=== PATIENT | male | born 1955 | race Caucasian/White ===

== ENCOUNTER → 2017-05-05 | Outpatient (CLI) | payer OTHER ==
[2017-05-05] MEDS: PROPARACAINE 0.5% 15 ML OPH (10:45)
[2017-05-05] MEDS: APRACLONIDINE 1% 0.1 ML OPH (10:45)
[2017-05-05] MEDS: PILOCARPINE 2% 15ML OPH (10:46)
== END | disposition home or self-care (01) ==
LOC: RAD 10:30
DX: H40.20X0 Unspecified primary angle-closure glaucoma, stage unspecified (principal)
CPT/HCPCS: 66761

== ENCOUNTER 2018-02-15 05:49 | Day surgery (SDC) | payer OTHER ==
[2018-02-15 07:14] LABS: ALANINE AMINOTRANSFERASE 20 IU/L (13-69); ALBUMIN 3.6 g/dl (3.3-4.9); ALBUMIN/GLOBULIN RATIO 1.28; ALKALINE PHOSPHATASE 73 IU/L (42-121); ANION GAP 10 (8-16); ASPARTATE AMINO TRANSFERASE 17 IU/L (15-46); BILIRUBIN,INDIRECT 0.4 mg/dl (0-1.1); BILIRUBIN,TOTAL 0.4 mg/dl (0.2-1.3); BLOOD UREA NITROGEN 15 mg/dl (7-20); CARBON DIOXIDE 26 mmol/L (21-31); CHLORIDE 107 mmol/L (97-110); CREATININE 0.53 mg/dl (0.61-1.24); GLUCOSE 138 mg/dl (70-220); POTASSIUM 3.9 mmol/L (3.5-5.1); SODIUM 139 mmol/L (135-144); TOTAL PROTEIN 6.4 g/dl (6.1-8.1)
[2018-02-15] MEDS ORDERED: MIDAZOLAM 1 MG/ML 2 ML INJ (07:28)
[2018-02-15] MEDS ORDERED: FENTAnyl 50 MCG/ML VIAL (07:28)
[2018-02-15] MEDS ORDERED: HEPARIN 1000 UNITS/ML 10 ML INJ (08:00)
[2018-02-15] MEDS ORDERED: IODIXANOL LOCM 50 ML BTL (08:00)
[2018-02-15] MEDS ORDERED: IODIXANOL LOCM 100 ML BTL (08:00)
[2018-02-15] MEDS ORDERED: LIDOCAINE 1% (MDV) 20 ML INJ (08:51)
[2018-02-15] MEDS ORDERED: LACTATED RINGER'S 1,000 ML (09:38)
== END 2018-02-15 12:28 | disposition home or self-care (01) ==
LOC: CCL 05:49 → SDS 05:49 → CCL 12:28
DX: I96 Gangrene, not elsewhere classified (principal); E11.9 Type 2 diabetes mellitus without complications; I42.9 Cardiomyopathy, unspecified; Z95.0 Presence of cardiac pacemaker; I11.0 Hypertensive heart disease with heart failure; I50.9 Heart failure, unspecified; I25.2 Old myocardial infarction
CPT/HCPCS: 37228; 75625; 75710; 80053; 82962

== ENCOUNTER → 2018-07-09 | Day surgery (SDC) | payer OTHER ==
[~2018-07-09] MED LIST: ACETAMINOPHEN 325 MG TAB; FENTAnyl 50 MCG/ML VIAL; HEPARIN 1000 UNITS/ML 10 ML INJ; IODIXANOL LOCM 100 ML BTL; LACTATED RINGER'S 500 ML IV; LIDOCAINE 1% (MDV) 20 ML INJ; MIDAZOLAM 1 MG/ML 2 ML INJ
[2018-07-09 11:17] LABS: ADD MAN DIFF? NO
[2018-07-09 11:20] LABS: WHITE BLOOD COUNT 9.7 10^3/ul (4.8-10.8)
[2018-07-09 11:20] LABS: BASOPHILS % 0.4 % (0.0-2.0); EOSINOPHILS # 0.3 10^3/ul (0.0-0.5); EOSINOPHILS % 2.7 % (0.0-7.0); HEMATOCRIT 45.8 % (42.0-52.0); LYMPHOCYTES # 2.5 10^3/ul (0.8-2.9); LYMPHOCYTES % 25.4 % (15.0-51.0); MEAN CORPUSCULAR HEMOGLOBIN 29.8 pg (29.0-33.0); MEAN CORPUSCULAR HGB CONC 32.8 g/dl (32.0-37.0); MEAN CORPUSCULAR VOLUME 90.9 fl (82.0-101.0); MEAN PLATELET VOLUME 10.9 fl (7.4-10.4); MONOCYTE # 0.7 10^3/ul (0.3-0.9); MONOCYTES % 7.1 % (0.0-11.0); NEUTROPHIL # 6.2 10^3/ul (1.6-7.5); PLATELET COUNT 263 10^3/UL (140-415); RED BLOOD COUNT 5.04 10^6/ul (4.70-6.10); RED CELL DISTRIBUTION WIDTH 13.9 % (11.5-14.5)
[2018-07-09 11:28] LABS: ADD UMIC NO; UR ASCORBIC ACID NEGATIVE (NEGATIVE); UR BILIRUBIN (Dip) NEGATIVE (NEGATIVE); UR BLOOD (Dip) NEGATIVE (NEGATIVE); UR CLARITY CLEAR (CLEAR); UR COLOR STRAW (YELLOW); UR GLUCOSE (Dip) 3+ mg/dL (NEGATIVE); UR KETONES (Dip) NEGATIVE (NEGATIVE); UR LEUKOCYTE ESTERASE (Dip) NEGATIVE Leu/ul (NEGATIVE); UR NITRITE (Dip) NEGATIVE (NEGATIVE); UR SPECIFIC GRAVITY (Dip) 1.013 (1.003-1.030); UR TOTAL PROTEIN (Dip) NEGATIVE (NEGATIVE); UR UROBILINOGEN (Dip) NEGATIVE (NEGATIVE)
[2018-07-09 11:37] LABS: ANION GAP 7 (5-13); BLOOD UREA NITROGEN 13 mg/dl (7-20); CALCIUM 9.7 mg/dl (8.4-10.2); CARBON DIOXIDE 24 mmol/L (21-31); CHLORIDE 108 mmol/L (97-110); Estimated GFR > 60 mL/min (>60); GLUCOSE 147 mg/dl (70-220); POTASSIUM 4.2 mmol/L (3.5-5.1); SODIUM 139 mmol/L (135-144)
[2018-07-09 11:38] LABS: INR 0.92; PROTIME 12.5 Sec (11.9-14.9)
[2018-07-09 11:39] LABS: CREATININE 0.58 mg/dl (0.61-1.24); PARTIAL THROMBOPLASTIN TIME 26.4 Sec (23.0-35.0)
[2018-07-09] MEDS: ACETAMINOPHEN 325 MG TAB PO (14:01)
== END | disposition home or self-care (01) ==
LOC: SDS 10:09
DX: L97.419 Non-pressure chronic ulcer of right heel and midfoot with unspecified severity (principal); I96 Gangrene, not elsewhere classified; E11.9 Type 2 diabetes mellitus without complications; I10 Essential (primary) hypertension; I73.9 Peripheral vascular disease, unspecified
CPT/HCPCS: 36902; 75630; 80048; 81003; 82962; 85025; 85610; 85730

== ENCOUNTER 2018-09-17 14:04 | Inpatient (IN) | payer OTHER ==
[2018-09-17 17:22] LABS: ADD MAN DIFF? NO
[2018-09-17 17:25] LABS: WHITE BLOOD COUNT 9.9 10^3/ul (4.8-10.8)
[2018-09-17 17:25] LABS: BASOPHILS % 0.3 % (0.0-2.0); EOSINOPHILS # 0.3 10^3/ul (0.0-0.5); EOSINOPHILS % 3.1 % (0.0-7.0); HEMOGLOBIN 13.8 g/dl (14.0-18.0); LYMPHOCYTES % 29.8 % (15.0-51.0); MEAN CORPUSCULAR HEMOGLOBIN 29.4 pg (29.0-33.0); MEAN CORPUSCULAR HGB CONC 32.1 g/dl (32.0-37.0); MEAN CORPUSCULAR VOLUME 91.5 fl (82.0-101.0); MONOCYTE # 0.8 10^3/ul (0.3-0.9); MONOCYTES % 8.4 % (0.0-11.0); NEUTROPHIL # 5.7 10^3/ul (1.6-7.5); PLATELET COUNT 257 10^3/UL (140-415); RED CELL DISTRIBUTION WIDTH 14.6 % (11.5-14.5)
[2018-09-17] MEDS: CEFEPIME 2GM/50 ML (PMX) 50 ML IVPB (17:32)
[2018-09-17 17:47] LABS: INR 0.91; PROTIME 12.4 Sec (11.9-14.9)
[2018-09-17 17:48] LABS: PARTIAL THROMBOPLASTIN TIME 23.5 Sec (23.0-35.0)
[2018-09-17 18:03] LABS: ALANINE AMINOTRANSFERASE 12 IU/L (13-69); ALBUMIN 4.3 g/dl (3.3-4.9); ALBUMIN/GLOBULIN RATIO 1.19; ALKALINE PHOSPHATASE 102 IU/L (42-121); ANION GAP 12 (5-13); ASPARTATE AMINO TRANSFERASE 26 IU/L (15-46); BILIRUBIN,INDIRECT 0.2 mg/dl (0-1.1); BILIRUBIN,TOTAL 0.2 mg/dl (0.2-1.3); BLOOD UREA NITROGEN 18 mg/dl (7-20); CALCIUM 9.8 mg/dl (8.4-10.2); CARBON DIOXIDE 21 mmol/L (21-31); CHLORIDE 108 mmol/L (97-110); CREATININE 0.57 mg/dl (0.61-1.24); Estimated GFR > 60 mL/min (>60); GLUCOSE 125 mg/dl (70-220); POTASSIUM 4.9 mmol/L (3.5-5.1); SODIUM 141 mmol/L (135-144); TOTAL PROTEIN 7.9 g/dl (6.1-8.1)
[2018-09-17] MEDS: VANCOMYCIN 1 GM (PMX) 250 ML IVPB (18:06)
[2018-09-17 18:14] LABS: C-REACTIVE PROTEIN < 0.5 mg/dl (0.0-0.9)
[2018-09-17] MEDS: morphine 10 MG INJ IV (18:14)
[2018-09-17] MEDS ORDERED: ACETAMINOPHEN 325 MG TAB PO ×2 (18:30→20:30)
[2018-09-17] MEDS ORDERED: ONDANSETRON 4 MG INJ IV (18:30)
[2018-09-17 18:31] LABS: ERYTHROCYTE SEDIMENTATION RATE 26 mm/Hr (0-20)
[2018-09-17] MEDS: ACCU-CHEK XX (21:00)
[2018-09-17] MEDS ORDERED: GLUCOSE GEL 15 GRAM TUBE PO ×2 (21:30)
[2018-09-17] MEDS ORDERED: GLUCOSE GEL 15 GRAM TUBE BUCCAL (21:30)
[2018-09-17] MEDS ORDERED: DEXTROSE 50% 50 ML SYRINGE IV ×2 (21:30)
[2018-09-17] MEDS ORDERED: GLUCAGON 1 MG INJ IM (21:30)
[2018-09-17] MEDS: morphine 4 MG/ML VIAL IV (21:49)
[2018-09-17] MEDS ORDERED: TRIMETHOPRIM/SULFAMETHOX (DS) TAB PO (22:30)
[2018-09-17] MEDS ORDERED: INSULIN GLARGINE [LANtus] 3 ML PEN SC (22:30)
[2018-09-17] MEDS: INSULIN ASPART [NOVOLOG] 3 ML PEN SC (23:33)
[2018-09-17] MEDS: INSULIN GLARGINE [LANTus] (100 UNITS/ML) SYG SC (23:36)
[2018-09-18] MEDS: HYDROCODONE/APAP (5/325) TAB PO ×4 (00:18→23:01)
[2018-09-18] MEDS: morphine 4 MG/ML VIAL IV ×5 (01:57→20:33)
[2018-09-18] MEDS: ACCU-CHEK XX ×5 (01:59→20:42)
[2018-09-18 06:39] LABS: INR 0.91; PROTIME 12.4 Sec (11.9-14.9)
[2018-09-18 06:40] LABS: PARTIAL THROMBOPLASTIN TIME 26.2 Sec (23.0-35.0)
[2018-09-18 06:41] LABS: HEMOGLOBIN A1C 7.6 % (0-5.9)
[2018-09-18 07:10] LABS: ANION GAP 7 (5-13); BLOOD UREA NITROGEN 16 mg/dl (7-20); CALCIUM 9.2 mg/dl (8.4-10.2); CARBON DIOXIDE 28 mmol/L (21-31); CHLORIDE 105 mmol/L (97-110); CHOL/HDL RATIO 4.3 RATIO; CHOLESTEROL 108 mg/dl (100-200); CREATININE 0.56 mg/dl (0.61-1.24); Estimated GFR > 60 mL/min (>60); GLUCOSE 114 mg/dl (70-220); HDL CHOLESTEROL 25 mg/dl (30-78); LDL CHOLESTEROL,CALCULATED 65 mg/dl; POTASSIUM 4.3 mmol/L (3.5-5.1); SODIUM 140 mmol/L (135-144); TRIGLYCERIDES 89 mg/dl (0-149)
[2018-09-18] MEDS: INSULIN ASPART [NOVOLOG] 3 ML PEN SC ×4 (08:00→20:42)
[2018-09-18] MEDS: GABAPENTIN 300 MG CAP PO (09:12)
[2018-09-18] MEDS: EMPAGLIFLOZIN 10 MG TABLET PO (09:14)
[2018-09-18] MEDS: LINAGLIPTIN 5 MG TABLET PO (09:14)
[2018-09-18] MEDS: CLOPIDOGREL 75 MG TAB PO (09:15)
[2018-09-18] MEDS: AMIODARONE 200 MG TAB PO (09:16)
[2018-09-18] MEDS: DIGOXIN 0.125 MG TAB PO (12:40)
[2018-09-18 18:50] LABS: TROPONIN-I < 0.012 ng/ml (0.000-0.120)
[2018-09-18] MEDS: INSULIN GLARGINE [LANTus] (100 UNITS/ML) SYG SC (20:46)
[2018-09-19 01:27] LABS: TROPONIN-I < 0.012 ng/ml (0.000-0.120)
[2018-09-19] MEDS: morphine 4 MG/ML VIAL IV ×5 (01:47→22:44)
[2018-09-19] MEDS: ACCU-CHEK XX ×5 (02:00→20:31)
[2018-09-19] MEDS: metroNIDAZOLE 500 MG TAB PO ×3 (02:04→14:13)
[2018-09-19] MEDS ORDERED: VANCOMYCIN IV PER PHARMACY XX (02:30)
[2018-09-19] MEDS: VANCOMYCIN HCL 2 GM in SOD CHLORIDE 0.9% 500 ML IVPB (04:12)
[2018-09-19] MEDS: HYDROCODONE/APAP (5/325) TAB PO ×3 (04:15→20:27)
[2018-09-19 05:52] LABS: CHOL/HDL RATIO 3.5 RATIO; HDL CHOLESTEROL 29 mg/dl (30-78); LDL CHOLESTEROL,CALCULATED 62 mg/dl; TRIGLYCERIDES 57 mg/dl (0-149)
[2018-09-19 05:52] LABS: CHOLESTEROL 102 mg/dl (100-200)
[2018-09-19 06:05] LABS: TROPONIN-I < 0.012 ng/ml (0.000-0.120)
[2018-09-19] MEDS: INSULIN ASPART [NOVOLOG] 3 ML PEN SC ×4 (08:00→20:31)
[2018-09-19] MEDS: CLOPIDOGREL 75 MG TAB PO (08:48)
[2018-09-19] MEDS: LINAGLIPTIN 5 MG TABLET PO (08:48)
[2018-09-19] MEDS: EMPAGLIFLOZIN 10 MG TABLET PO (08:49)
[2018-09-19] MEDS: GABAPENTIN 300 MG CAP PO (08:50)
[2018-09-19] MEDS: CEFEPIME 2GM/50 ML (PMX) 50 ML IVPB (08:55)
[2018-09-19] MEDS: AMIODARONE 200 MG TAB PO (09:00)
[2018-09-19] MEDS: REGADENOSON 0.4 MG/5 ML SYG (12:30)
[2018-09-19] MEDS: DIGOXIN 0.125 MG TAB PO (14:14)
[2018-09-19] MEDS: VANCOMYCIN HCL 1.5 GM in SOD CHLORIDE 0.9% 250 ML IVPB (16:20)
[2018-09-19] MEDS: INSULIN GLARGINE [LANTus] (100 UNITS/ML) SYG SC (20:33)
[2018-09-19] MEDS: MEROPENEM 1 GM/50ML(PMX) 50 ML IVPB (20:35)
[2018-09-19] MEDS: CLINDAMYCIN 900 MG/D5W (PMX) 50 ML IVPB (22:47)
[2018-09-20] MEDS: HYDROCODONE/APAP (5/325) TAB PO ×4 (00:37→22:13)
[2018-09-20] MEDS: ACCU-CHEK XX ×5 (02:00→21:00)
[2018-09-20] MEDS: morphine 4 MG/ML VIAL IV ×6 (02:54→23:52)
[2018-09-20] MEDS: VANCOMYCIN HCL 1.5 GM in SOD CHLORIDE 0.9% 250 ML IVPB ×2 (04:09→16:32)
[2018-09-20 05:45] LABS: ADD MAN DIFF? NO
[2018-09-20] MEDS: MEROPENEM 1 GM/50ML(PMX) 50 ML IVPB ×3 (05:47→21:28)
[2018-09-20 05:52] LABS: BASOPHILS % 0.4 % (0.0-2.0); EOSINOPHILS # 0.3 10^3/ul (0.0-0.5); EOSINOPHILS % 3.5 % (0.0-7.0); LYMPHOCYTES # 2.1 10^3/ul (0.8-2.9); LYMPHOCYTES % 24.9 % (15.0-51.0); MEAN CORPUSCULAR HEMOGLOBIN 29.2 pg (29.0-33.0); MEAN CORPUSCULAR HGB CONC 32.6 g/dl (32.0-37.0); MEAN CORPUSCULAR VOLUME 89.8 fl (82.0-101.0); MEAN PLATELET VOLUME 10.9 fl (7.4-10.4); MONOCYTE # 0.7 10^3/ul (0.3-0.9); MONOCYTES % 8.6 % (0.0-11.0); NEUTROPHIL # 5.2 10^3/ul (1.6-7.5); NEUTROPHILS % 62.1 % (39.0-77.0); PLATELET COUNT 257 10^3/UL (140-415); RED BLOOD COUNT 4.79 10^6/ul (4.70-6.10); RED CELL DISTRIBUTION WIDTH 14.3 % (11.5-14.5)
[2018-09-20 05:52] LABS: WHITE BLOOD COUNT 8.4 10^3/ul (4.8-10.8)
[2018-09-20] MEDS: CLINDAMYCIN 900 MG/D5W (PMX) 50 ML IVPB ×3 (06:15→23:46)
[2018-09-20 06:48] LABS: ANION GAP 9 (5-13); BLOOD UREA NITROGEN 19 mg/dl (7-20); CALCIUM 9.4 mg/dl (8.4-10.2); CARBON DIOXIDE 27 mmol/L (21-31); CHLORIDE 104 mmol/L (97-110); CREATININE 0.59 mg/dl (0.61-1.24); Estimated GFR > 60 mL/min (>60); GLUCOSE 123 mg/dl (70-220); POTASSIUM 4.2 mmol/L (3.5-5.1); SODIUM 140 mmol/L (135-144)
[2018-09-20] MEDS: INSULIN ASPART [NOVOLOG] 3 ML PEN SC ×4 (08:00→21:00)
[2018-09-20 08:33] LABS: ERYTHROCYTE SEDIMENTATION RATE 37 mm/Hr (0-20)
[2018-09-20] MEDS: CLOPIDOGREL 75 MG TAB PO (09:33)
[2018-09-20] MEDS: LINAGLIPTIN 5 MG TABLET PO (09:34)
[2018-09-20] MEDS: GABAPENTIN 300 MG CAP PO (09:34)
[2018-09-20] MEDS: AMIODARONE 200 MG TAB PO (09:35)
[2018-09-20] MEDS: EMPAGLIFLOZIN 10 MG TABLET PO (11:17)
[2018-09-20] MEDS: DIGOXIN 0.125 MG TAB PO (12:32)
[2018-09-20 15:25] LABS: VANCOMYCIN,TROUGH 13.7 ug/ml (10.0-20.0)
[2018-09-20] MEDS: NEOMYC/POLYMYX/BACIT 30 GM OINT TOP (18:30)
[2018-09-20] MEDS: INSULIN GLARGINE [LANTus] (100 UNITS/ML) SYG SC (21:33)
[2018-09-21] MEDS: ACCU-CHEK XX ×5 (02:00→20:40)
[2018-09-21] MEDS: HYDROCODONE/APAP (5/325) TAB PO ×4 (02:18→20:36)
[2018-09-21] MEDS: VANCOMYCIN HCL 1.5 GM in SOD CHLORIDE 0.9% 250 ML IVPB ×2 (03:22→16:06)
[2018-09-21] MEDS: morphine 4 MG/ML VIAL IV ×5 (04:04→22:09)
[2018-09-21] MEDS: MEROPENEM 1 GM/50ML(PMX) 50 ML IVPB ×3 (06:32→22:08)
[2018-09-21] MEDS: CLINDAMYCIN 900 MG/D5W (PMX) 50 ML IVPB ×3 (07:09→22:47)
[2018-09-21] MEDS: INSULIN ASPART [NOVOLOG] 3 ML PEN SC ×4 (08:00→20:39)
[2018-09-21] MEDS: ACETAMINOPHEN 500 MG TAB PO (08:48)
[2018-09-21] MEDS ORDERED: MIDAZOLAM 1 MG/ML 2 ML INJ (08:49)
[2018-09-21] MEDS ORDERED: FENTAnyl 50 MCG/ML VIAL ×2 (08:49→10:01)
[2018-09-21] MEDS ORDERED: LIDOCAINE 100 MG SYRINGE (08:49)
[2018-09-21] MEDS: NEOMYC/POLYMYX/BACIT 30 GM OINT TOP (09:00)
[2018-09-21] MEDS: LISINOPRIL 5 MG TAB PO (09:00)
[2018-09-21] MEDS: GABAPENTIN 300 MG CAP PO (09:00)
[2018-09-21] MEDS ORDERED: CEFAZOLIN 1 GM INJ (10:00)
[2018-09-21] MEDS ORDERED: LIDOCAINE 2% (MDV) 20 ML INJ (10:05)
[2018-09-21] MEDS ORDERED: PROPOFOL 100 ML (10:26)
[2018-09-21] MEDS ORDERED: ETOMIDATE 20 MG INJ (10:26)
[2018-09-21] MEDS ORDERED: hydrALAzine 20 MG INJ IV (10:30)
[2018-09-21] MEDS ORDERED: HYDROmorphONE 1 MG/5 ML IV SYRINGE IV ×2 (10:30)
[2018-09-21] MEDS ORDERED: LABETALOL HCL 20MG INJ IV (10:30)
[2018-09-21] MEDS ORDERED: FENTAnyl 50 MCG/ML VIAL IV ×2 (10:30)
[2018-09-21] MEDS ORDERED: ONDANSETRON 4 MG INJ IV (10:30)
[2018-09-21] MEDS ORDERED: METOCLOPRAMIDE 10 MG INJ IV (10:30)
[2018-09-21] MEDS: EMPAGLIFLOZIN 10 MG TABLET PO (11:41)
[2018-09-21] MEDS: AMIODARONE 200 MG TAB PO (11:42)
[2018-09-21] MEDS: CLOPIDOGREL 75 MG TAB PO (11:42)
[2018-09-21] MEDS: LINAGLIPTIN 5 MG TABLET PO (11:42)
[2018-09-21] MEDS: DIGOXIN 0.125 MG TAB PO (13:12)
[2018-09-21] MEDS: SENNA TAB PO (17:49)
[2018-09-21] MEDS: INSULIN GLARGINE [LANTus] (100 UNITS/ML) SYG SC (20:43)
[2018-09-22] MEDS: ACCU-CHEK XX ×5 (02:00→21:04)
[2018-09-22] MEDS: morphine 4 MG/ML VIAL IV ×4 (02:33→16:44)
[2018-09-22] MEDS: VANCOMYCIN HCL 1.5 GM in SOD CHLORIDE 0.9% 250 ML IVPB ×3 (04:00→16:53)
[2018-09-22 05:36] LABS: ADD MAN DIFF? NO
[2018-09-22 05:46] LABS: WHITE BLOOD COUNT 10.4 10^3/ul (4.8-10.8)
[2018-09-22 05:46] LABS: BASOPHILS % 0.4 % (0.0-2.0); EOSINOPHILS # 0.4 10^3/ul (0.0-0.5); EOSINOPHILS % 3.7 % (0.0-7.0); HEMATOCRIT 42.9 % (42.0-52.0); HEMOGLOBIN 14.1 g/dl (14.0-18.0); LYMPHOCYTES # 2.2 10^3/ul (0.8-2.9); MEAN CORPUSCULAR HEMOGLOBIN 29.6 pg (29.0-33.0); MEAN CORPUSCULAR HGB CONC 32.9 g/dl (32.0-37.0); MEAN CORPUSCULAR VOLUME 89.9 fl (82.0-101.0); MEAN PLATELET VOLUME 10.9 fl (7.4-10.4); MONOCYTES % 9.1 % (0.0-11.0); NEUTROPHIL # 6.8 10^3/ul (1.6-7.5); NEUTROPHILS % 65.3 % (39.0-77.0); PLATELET COUNT 256 10^3/UL (140-415); RED BLOOD COUNT 4.77 10^6/ul (4.70-6.10); RED CELL DISTRIBUTION WIDTH 14.3 % (11.5-14.5)
[2018-09-22] MEDS: CLINDAMYCIN 900 MG/D5W (PMX) 50 ML IVPB ×3 (06:00→23:26)
[2018-09-22 06:01] LABS: ANION GAP 8 (5-13); BLOOD UREA NITROGEN 28 mg/dl (7-20); CALCIUM 9.8 mg/dl (8.4-10.2); CARBON DIOXIDE 30 mmol/L (21-31); CHLORIDE 101 mmol/L (97-110); CREATININE 0.68 mg/dl (0.61-1.24); Estimated GFR > 60 mL/min (>60); GLUCOSE 122 mg/dl (70-220); MAGNESIUM 2.2 mg/dl (1.7-2.5); SODIUM 139 mmol/L (135-144)
[2018-09-22] MEDS: MEROPENEM 1 GM/50ML(PMX) 50 ML IVPB ×3 (06:02→21:43)
[2018-09-22] MEDS: INSULIN ASPART [NOVOLOG] 3 ML PEN SC ×4 (08:00→21:00)
[2018-09-22] MEDS: LISINOPRIL 5 MG TAB PO (08:41)
[2018-09-22] MEDS: CLOPIDOGREL 75 MG TAB PO (08:41)
[2018-09-22] MEDS: EMPAGLIFLOZIN 10 MG TABLET PO (08:41)
[2018-09-22] MEDS: AMIODARONE 200 MG TAB PO (08:41)
[2018-09-22] MEDS: NEOMYC/POLYMYX/BACIT 30 GM OINT TOP (08:42)
[2018-09-22] MEDS: ENOXAPARIN 30 MG/0.3 ML SYG SC (08:48)
[2018-09-22] MEDS: GABAPENTIN 300 MG CAP PO (08:49)
[2018-09-22] MEDS: LINAGLIPTIN 5 MG TABLET PO (08:50)
[2018-09-22] MEDS: HYDROCODONE/APAP (10/325) TAB PO (11:02)
[2018-09-22] MEDS: DIGOXIN 0.125 MG TAB PO (14:25)
[2018-09-22] MEDS: SENNA TAB PO (16:52)
[2018-09-22] MEDS: DOCUSATE SODIUM 100 MG CAP PO (16:52)
[2018-09-22] MEDS: LIDOCAINE 1% (MPF) 5 ML VIAL SC (18:00)
[2018-09-22] MEDS: ONDANSETRON 4 MG INJ IV (19:59)
[2018-09-22] MEDS: INSULIN GLARGINE [LANTus] (100 UNITS/ML) SYG SC (21:03)
[2018-09-22] MEDS: SOD CHLORIDE 0.9% 250 ML IV (23:44)
[2018-09-23] MEDS: ACETAMINOPHEN 1000MG/100ML IV 100 ML IVPB (00:52)
[2018-09-23] MEDS ORDERED: PHENYLephrine 20MG IN 250 ML 250 ML (01:11)
[2018-09-23] MEDS: PHENYLephrine 20MG IN 250 ML 250 ML IV ×3 (01:15→08:38)
[2018-09-23] MEDS: ACCU-CHEK XX ×5 (02:00→20:56)
[2018-09-23] MEDS: VANCOMYCIN HCL 1.5 GM in SOD CHLORIDE 0.9% 250 ML IVPB ×2 (04:07→17:09)
[2018-09-23] MEDS: MEROPENEM 1 GM/50ML(PMX) 50 ML IVPB ×3 (05:09→21:36)
[2018-09-23 05:21] LABS: ADD MAN DIFF? NO
[2018-09-23 05:26] LABS: BASOPHILS % 0.3 % (0.0-2.0); EOSINOPHILS % 0.3 % (0.0-7.0); HEMATOCRIT 28.7 % (42.0-52.0); HEMOGLOBIN 9.2 g/dl (14.0-18.0); LYMPHOCYTES # 2.3 10^3/ul (0.8-2.9); LYMPHOCYTES % 19.8 % (15.0-51.0); MEAN CORPUSCULAR HEMOGLOBIN 29.6 pg (29.0-33.0); MEAN CORPUSCULAR HGB CONC 32.1 g/dl (32.0-37.0); MEAN CORPUSCULAR VOLUME 92.3 fl (82.0-101.0); MEAN PLATELET VOLUME 11.4 fl (7.4-10.4); MONOCYTE # 0.8 10^3/ul (0.3-0.9); MONOCYTES % 6.4 % (0.0-11.0); NEUTROPHIL # 8.4 10^3/ul (1.6-7.5); NEUTROPHILS % 72.2 % (39.0-77.0); PLATELET COUNT 254 10^3/UL (140-415); RED BLOOD COUNT 3.11 10^6/ul (4.70-6.10); RED CELL DISTRIBUTION WIDTH 14.2 % (11.5-14.5)
[2018-09-23 05:26] LABS: WHITE BLOOD COUNT 11.7 10^3/ul (4.8-10.8)
[2018-09-23 06:03] LABS: ANION GAP 8 (5-13); BLOOD UREA NITROGEN 67 mg/dl (7-20); CALCIUM 8.7 mg/dl (8.4-10.2); CARBON DIOXIDE 24 mmol/L (21-31); CHLORIDE 108 mmol/L (97-110); CREATININE 0.84 mg/dl (0.61-1.24); Estimated GFR > 60 mL/min (>60); GLUCOSE 159 mg/dl (70-220); MAGNESIUM 2.2 mg/dl (1.7-2.5); POTASSIUM 5.4 mmol/L (3.5-5.1); SODIUM 140 mmol/L (135-144)
[2018-09-23] MEDS: LINAGLIPTIN 5 MG TABLET PO (08:01)
[2018-09-23] MEDS: GABAPENTIN 300 MG CAP PO ×2 (08:01→08:14)
[2018-09-23] MEDS: EMPAGLIFLOZIN 10 MG TABLET PO (08:01)
[2018-09-23] MEDS: CLOPIDOGREL 75 MG TAB PO (08:01)
[2018-09-23] MEDS: ENOXAPARIN 30 MG/0.3 ML SYG SC (08:03)
[2018-09-23] MEDS: CLINDAMYCIN 900 MG/D5W (PMX) 50 ML IVPB ×3 (08:05→21:20)
[2018-09-23] MEDS: FUROSEMIDE 20 MG TAB PO (08:05)
[2018-09-23] MEDS: LISINOPRIL 5 MG TAB PO (08:22)
[2018-09-23] MEDS: HYDROCODONE/APAP (5/325) TAB PO (08:43)
[2018-09-23] MEDS: NEOMYC/POLYMYX/BACIT 30 GM OINT TOP (09:00)
[2018-09-23] MEDS: AMIODARONE 200 MG TAB PO (09:00)
[2018-09-23 09:13] LABS: ADD MAN DIFF? NO
[2018-09-23 09:15] LABS: WHITE BLOOD COUNT 10.2 10^3/ul (4.8-10.8)
[2018-09-23 09:15] LABS: BASOPHILS % 0.2 % (0.0-2.0); EOSINOPHILS % 0.3 % (0.0-7.0); HEMATOCRIT 25.3 % (42.0-52.0); HEMOGLOBIN 8.3 g/dl (14.0-18.0); LYMPHOCYTES # 2.2 10^3/ul (0.8-2.9); LYMPHOCYTES % 21.5 % (15.0-51.0); MEAN CORPUSCULAR HEMOGLOBIN 30.3 pg (29.0-33.0); MEAN CORPUSCULAR HGB CONC 32.8 g/dl (32.0-37.0); MEAN CORPUSCULAR VOLUME 92.3 fl (82.0-101.0); MEAN PLATELET VOLUME 10.2 fl (7.4-10.4); MONOCYTE # 0.8 10^3/ul (0.3-0.9); MONOCYTES % 7.4 % (0.0-11.0); NEUTROPHIL # 7.1 10^3/ul (1.6-7.5); NEUTROPHILS % 69.9 % (39.0-77.0); PLATELET COUNT 226 10^3/UL (140-415); RED BLOOD COUNT 2.74 10^6/ul (4.70-6.10); RED CELL DISTRIBUTION WIDTH 14.5 % (11.5-14.5)
[2018-09-23] MEDS: INSULIN ASPART [NOVOLOG] 3 ML PEN SC ×4 (10:10→21:03)
[2018-09-23] MEDS: NA POLYST SULFON 15 GM/60 ML BTL PO (12:29)
[2018-09-23] MEDS: DIGOXIN 0.125 MG TAB PO (12:29)
[2018-09-23 12:53] LABS: LACTIC ACID 0.7 mmol/L (0.5-2.0)
[2018-09-23 13:04] LABS: TROPONIN-I 0.014 ng/ml (0.000-0.120)
[2018-09-23] MEDS: HYDROCODONE/APAP (10/325) TAB PO ×2 (14:43→21:26)
[2018-09-23 15:59] LABS: ADD MAN DIFF? NO
[2018-09-23 16:00] LABS: BASOPHILS % 0.2 % (0.0-2.0); EOSINOPHILS # 0.1 10^3/ul (0.0-0.5); EOSINOPHILS % 0.7 % (0.0-7.0); HEMATOCRIT 24.2 % (42.0-52.0); HEMOGLOBIN 7.9 g/dl (14.0-18.0); LYMPHOCYTES # 2.9 10^3/ul (0.8-2.9); LYMPHOCYTES % 27.2 % (15.0-51.0); MEAN CORPUSCULAR HEMOGLOBIN 29.5 pg (29.0-33.0); MEAN CORPUSCULAR HGB CONC 32.6 g/dl (32.0-37.0); MEAN CORPUSCULAR VOLUME 90.3 fl (82.0-101.0); MEAN PLATELET VOLUME 9.8 fl (7.4-10.4); MONOCYTE # 1.2 10^3/ul (0.3-0.9); NEUTROPHIL # 6.4 10^3/ul (1.6-7.5); PLATELET COUNT 210 10^3/UL (140-415); RED BLOOD COUNT 2.68 10^6/ul (4.70-6.10); RED CELL DISTRIBUTION WIDTH 14.6 % (11.5-14.5)
[2018-09-23 16:00] LABS: WHITE BLOOD COUNT 10.7 10^3/ul (4.8-10.8)
[2018-09-23 18:13] LABS: TROPONIN-I 0.014 ng/ml (0.000-0.120)
[2018-09-23 19:57] LABS: FERRITIN 48.7 ng/ml (11.1-264.0)
[2018-09-23] MEDS: morphine 2 MG INJ IV (20:09)
[2018-09-23 20:28] LABS: FOLATE 5.5 ng/ml (2.8-20.0)
[2018-09-23] MEDS: INSULIN GLARGINE [LANTus] (100 UNITS/ML) SYG SC (21:21)
[2018-09-23] MEDS: SOD CHLORIDE 0.9% 250 ML IV* (21:23)
[2018-09-23 23:01] LABS: IMMEDIATE SPIN CROSSMATCH 1 1
[2018-09-23 23:25] LABS: IRON 98 ug/dl (35-150)
[2018-09-23 23:34] LABS: % IRON SATURATION 39 % SAT (22-52); TOTAL IRON BINDING CAPACITY 251 ug/dl (241-421)
[2018-09-24] MEDS: morphine 2 MG INJ IV ×4 (01:08→22:10)
[2018-09-24 01:53] LABS: TROPONIN-I 0.014 ng/ml (0.000-0.120)
[2018-09-24] MEDS: ACCU-CHEK XX ×5 (01:58→20:47)
[2018-09-24] MEDS: HYDROCODONE/APAP (10/325) TAB PO ×4 (02:57→19:49)
[2018-09-24 04:01] LABS: ADD MAN DIFF? NO; ALANINE AMINOTRANSFERASE 29 IU/L (13-69); ALBUMIN 2.9 g/dl (3.3-4.9); ALBUMIN/GLOBULIN RATIO 1.16; ALKALINE PHOSPHATASE 60 IU/L (42-121); ANION GAP 5 (5-13); ASPARTATE AMINO TRANSFERASE 21 IU/L (15-46); BASOPHILS % 0.2 % (0.0-2.0); BILIRUBIN,INDIRECT 0.4 mg/dl (0-1.1); BILIRUBIN,TOTAL 0.4 mg/dl (0.2-1.3); BLOOD UREA NITROGEN 39 mg/dl (7-20); CALCIUM 8.3 mg/dl (8.4-10.2); CARBON DIOXIDE 24 mmol/L (21-31); CHLORIDE 111 mmol/L (97-110); CREATININE 0.58 mg/dl (0.61-1.24); EOSINOPHILS # 0.2 10^3/ul (0.0-0.5); EOSINOPHILS % 2.2 % (0.0-7.0); Estimated GFR > 60 mL/min (>60); GLUCOSE 133 mg/dl (70-220); HEMATOCRIT 23.5 % (42.0-52.0); HEMOGLOBIN 7.8 g/dl (14.0-18.0); LYMPHOCYTES % 29.2 % (15.0-51.0); MEAN CORPUSCULAR HEMOGLOBIN 30.4 pg (29.0-33.0); MEAN CORPUSCULAR HGB CONC 33.2 g/dl (32.0-37.0); MEAN CORPUSCULAR VOLUME 91.4 fl (82.0-101.0); MEAN PLATELET VOLUME 10.9 fl (7.4-10.4); MONOCYTE # 0.9 10^3/ul (0.3-0.9); MONOCYTES % 8.9 % (0.0-11.0); NEUTROPHILS % 58.5 % (39.0-77.0); PLATELET COUNT 189 10^3/UL (140-415); POTASSIUM 3.9 mmol/L (3.5-5.1); RED BLOOD COUNT 2.57 10^6/ul (4.70-6.10); RED CELL DISTRIBUTION WIDTH 14.6 % (11.5-14.5); RETICULOCYTE COUNT % 3.9 % (0.5-1.5); SODIUM 140 mmol/L (135-144); TOTAL PROTEIN 5.4 g/dl (6.1-8.1)
[2018-09-24 04:01] LABS: MAGNESIUM 2.3 mg/dl (1.7-2.5); RETICULOCYTE RBC 2.58; WHITE BLOOD COUNT 10.2 10^3/ul (4.8-10.8)
[2018-09-24 04:06] LABS: VANCOMYCIN,TROUGH 14.5 ug/ml (10.0-20.0)
[2018-09-24] MEDS: VANCOMYCIN HCL 1.5 GM in SOD CHLORIDE 0.9% 250 ML IVPB (04:24)
[2018-09-24] MEDS: PANTOPRAZOLE 40 MG INJ IV (05:06)
[2018-09-24] MEDS: MEROPENEM 1 GM/50ML(PMX) 50 ML IVPB ×2 (05:06→13:06)
[2018-09-24] MEDS: CLINDAMYCIN 900 MG/D5W (PMX) 50 ML IVPB ×2 (05:48→13:06)
[2018-09-24] MEDS: INSULIN ASPART [NOVOLOG] 3 ML PEN SC ×4 (07:50→20:46)
[2018-09-24] MEDS: CLOPIDOGREL 75 MG TAB PO (08:47)
[2018-09-24] MEDS: EMPAGLIFLOZIN 10 MG TABLET PO (08:47)
[2018-09-24] MEDS: AMIODARONE 200 MG TAB PO (08:47)
[2018-09-24] MEDS: FUROSEMIDE 20 MG TAB PO (08:48)
[2018-09-24] MEDS: GABAPENTIN 300 MG CAP PO (08:49)
[2018-09-24] MEDS: CYANOCOBALAMIN 1000 MCG INJ IM (08:50)
[2018-09-24] MEDS: ENOXAPARIN 30 MG/0.3 ML SYG SC (08:51)
[2018-09-24] MEDS: LINAGLIPTIN 5 MG TABLET PO (08:58)
[2018-09-24] MEDS: LISINOPRIL 5 MG TAB PO (08:58)
[2018-09-24] MEDS: NEOMYC/POLYMYX/BACIT 30 GM OINT TOP (08:59)
[2018-09-24] MEDS: DIGOXIN 0.125 MG TAB PO (12:53)
[2018-09-24 12:59] LABS: OCCULT BLOOD STOOL NEGATIVE (NEGATIVE)
[2018-09-24] MEDS: CEFTRIAXONE 1 GM/50 ML (PMX) 50 ML IVPB (16:37)
[2018-09-24] MEDS: VANCOMYCIN HCL 1.25 GM in SOD CHLORIDE 0.9% 250 ML IVPB (16:38)
[2018-09-24] MEDS: INSULIN GLARGINE [LANTus] (100 UNITS/ML) SYG SC (20:47)
[2018-09-24] MEDS: metroNIDAZOLE 500 MG/NS (PMX) 100 ML IVPB (21:45)
[2018-09-25] MEDS: HYDROCODONE/APAP (10/325) TAB PO ×4 (00:22→22:11)
[2018-09-25] MEDS: ACCU-CHEK XX ×5 (02:00→20:47)
[2018-09-25] MEDS: VANCOMYCIN HCL 1.25 GM in SOD CHLORIDE 0.9% 250 ML IVPB ×2 (04:09→17:02)
[2018-09-25] MEDS: PANTOPRAZOLE (EC) 40 MG TAB PO (05:07)
[2018-09-25] MEDS: metroNIDAZOLE 500 MG/NS (PMX) 100 ML IVPB ×3 (05:07→21:14)
[2018-09-25 08:21] LABS: ADD MAN DIFF? NO
[2018-09-25 08:25] LABS: BASOPHILS % 0.2 % (0.0-2.0); EOSINOPHILS # 0.3 10^3/ul (0.0-0.5); EOSINOPHILS % 3.2 % (0.0-7.0); HEMATOCRIT 23.6 % (42.0-52.0); HEMOGLOBIN 7.8 g/dl (14.0-18.0); MEAN CORPUSCULAR HEMOGLOBIN 30.4 pg (29.0-33.0); MEAN CORPUSCULAR HGB CONC 33.1 g/dl (32.0-37.0); MEAN CORPUSCULAR VOLUME 91.8 fl (82.0-101.0); MEAN PLATELET VOLUME 11.3 fl (7.4-10.4); MONOCYTE # 0.7 10^3/ul (0.3-0.9); MONOCYTES % 8.2 % (0.0-11.0); NEUTROPHIL # 5.3 10^3/ul (1.6-7.5); NEUTROPHILS % 63.1 % (39.0-77.0); PLATELET COUNT 204 10^3/UL (140-415); RED BLOOD COUNT 2.57 10^6/ul (4.70-6.10); RED CELL DISTRIBUTION WIDTH 14.7 % (11.5-14.5)
[2018-09-25 08:25] LABS: WHITE BLOOD COUNT 8.5 10^3/ul (4.8-10.8)
[2018-09-25 08:52] LABS: ANION GAP 9 (5-13); BLOOD UREA NITROGEN 18 mg/dl (7-20); CALCIUM 8.8 mg/dl (8.4-10.2); CARBON DIOXIDE 25 mmol/L (21-31); CHLORIDE 104 mmol/L (97-110); CREATININE 0.49 mg/dl (0.61-1.24); Estimated GFR > 60 mL/min (>60); GLUCOSE 125 mg/dl (70-220); POTASSIUM 4.1 mmol/L (3.5-5.1); SODIUM 138 mmol/L (135-144)
[2018-09-25] MEDS: LISINOPRIL 5 MG TAB PO (09:00)
[2018-09-25] MEDS: GABAPENTIN 300 MG CAP PO (09:06)
[2018-09-25] MEDS: EMPAGLIFLOZIN 10 MG TABLET PO (09:07)
[2018-09-25] MEDS: CLOPIDOGREL 75 MG TAB PO (09:08)
[2018-09-25] MEDS: AMIODARONE 200 MG TAB PO (09:08)
[2018-09-25] MEDS: FUROSEMIDE 20 MG TAB PO (09:09)
[2018-09-25] MEDS: LINAGLIPTIN 5 MG TABLET PO (09:11)
[2018-09-25] MEDS: CYANOCOBALAMIN 1000 MCG INJ IM (09:12)
[2018-09-25] MEDS: morphine 2 MG INJ IV ×2 (09:13→17:51)
[2018-09-25] MEDS: NEOMYC/POLYMYX/BACIT 30 GM OINT TOP (09:14)
[2018-09-25] MEDS: INSULIN ASPART [NOVOLOG] 3 ML PEN SC ×5 (09:21→20:45)
[2018-09-25] MEDS: DIGOXIN 0.125 MG TAB PO (14:25)
[2018-09-25] MEDS: CEFTRIAXONE 1 GM/50 ML (PMX) 50 ML IVPB (15:39)
[2018-09-25] MEDS: INSULIN GLARGINE [LANTus] (100 UNITS/ML) SYG SC (21:15)
[2018-09-25] MEDS: CEFEPIME 2GM/50 ML (PMX) 50 ML IVPB (21:17)
[2018-09-25] MEDS: IOHEXOL 14.3 MG(I)/ML (ADULT) BTL PO (23:00)
[2018-09-26] MEDS: HYDROCODONE/APAP (5/325) TAB PO (00:56)
[2018-09-26] MEDS: ACCU-CHEK XX ×5 (02:20→20:49)
[2018-09-26] MEDS: morphine 2 MG INJ IV ×2 (02:36→10:01)
[2018-09-26] MEDS: VANCOMYCIN HCL 1.25 GM in SOD CHLORIDE 0.9% 250 ML IVPB ×2 (04:05→15:54)
[2018-09-26] MEDS: HYDROCODONE/APAP (10/325) TAB PO ×2 (04:39→11:32)
[2018-09-26] MEDS: PANTOPRAZOLE (EC) 40 MG TAB PO (04:39)
[2018-09-26] MEDS: metroNIDAZOLE 500 MG/NS (PMX) 100 ML IVPB ×3 (04:46→21:05)
[2018-09-26 06:38] LABS: ADD MAN DIFF? NO
[2018-09-26 06:50] LABS: WHITE BLOOD COUNT 7.4 10^3/ul (4.8-10.8)
[2018-09-26 06:50] LABS: BASOPHILS % 0.1 % (0.0-2.0); EOSINOPHILS # 0.3 10^3/ul (0.0-0.5); EOSINOPHILS % 3.7 % (0.0-7.0); HEMATOCRIT 22.9 % (42.0-52.0); HEMOGLOBIN 7.5 g/dl (14.0-18.0); LYMPHOCYTES # 2.2 10^3/ul (0.8-2.9); LYMPHOCYTES % 29.8 % (15.0-51.0); MEAN CORPUSCULAR HEMOGLOBIN 30.2 pg (29.0-33.0); MEAN CORPUSCULAR HGB CONC 32.8 g/dl (32.0-37.0); MEAN CORPUSCULAR VOLUME 92.3 fl (82.0-101.0); MEAN PLATELET VOLUME 11.4 fl (7.4-10.4); MONOCYTE # 0.7 10^3/ul (0.3-0.9); NEUTROPHIL # 4.2 10^3/ul (1.6-7.5); NEUTROPHILS % 56.4 % (39.0-77.0); PLATELET COUNT 203 10^3/UL (140-415); RED BLOOD COUNT 2.48 10^6/ul (4.70-6.10); RED CELL DISTRIBUTION WIDTH 14.8 % (11.5-14.5)
[2018-09-26 07:12] LABS: ANION GAP 6 (5-13); BLOOD UREA NITROGEN 14 mg/dl (7-20); CALCIUM 8.5 mg/dl (8.4-10.2); CARBON DIOXIDE 27 mmol/L (21-31); CHLORIDE 105 mmol/L (97-110); Estimated GFR > 60 mL/min (>60); GLUCOSE 112 mg/dl (70-220); SODIUM 138 mmol/L (135-144)
[2018-09-26 07:14] LABS: POTASSIUM 4.1 mmol/L (3.5-5.1)
[2018-09-26] MEDS: INSULIN ASPART [NOVOLOG] 3 ML PEN SC ×4 (07:55→20:30)
[2018-09-26] MEDS: CYANOCOBALAMIN 1000 MCG INJ IM (08:20)
[2018-09-26] MEDS: CEFEPIME 2GM/50 ML (PMX) 50 ML IVPB ×2 (08:20→20:49)
[2018-09-26] MEDS: GABAPENTIN 300 MG CAP PO (08:21)
[2018-09-26] MEDS: FUROSEMIDE 20 MG TAB PO (08:21)
[2018-09-26] MEDS: EMPAGLIFLOZIN 10 MG TABLET PO (08:21)
[2018-09-26] MEDS: AMIODARONE 200 MG TAB PO (08:22)
[2018-09-26] MEDS: CLOPIDOGREL 75 MG TAB PO (08:22)
[2018-09-26] MEDS: LISINOPRIL 5 MG TAB PO (08:22)
[2018-09-26] MEDS: LINAGLIPTIN 5 MG TABLET PO (08:22)
[2018-09-26] MEDS: NEOMYC/POLYMYX/BACIT 30 GM OINT TOP (08:23)
[2018-09-26] MEDS: DIGOXIN 0.125 MG TAB PO (13:47)
[2018-09-26] MEDS: oxyCODONE (CR) 10 MG TAB [oxyCONTIN] PO ×2 (15:25→21:05)
[2018-09-26] MEDS: HYDROmorphONE 1 MG/ML SYG IV ×2 (15:26→20:15)
[2018-09-26] MEDS: INSULIN GLARGINE [LANTus] (100 UNITS/ML) SYG SC (20:30)
[2018-09-27] MEDS: ACCU-CHEK XX ×5 (02:19→21:49)
[2018-09-27] MEDS: VANCOMYCIN HCL 1.25 GM in SOD CHLORIDE 0.9% 250 ML IVPB ×2 (04:12→16:32)
[2018-09-27] MEDS: PANTOPRAZOLE (EC) 40 MG TAB PO (05:36)
[2018-09-27] MEDS: metroNIDAZOLE 500 MG/NS (PMX) 100 ML IVPB ×3 (05:36→22:41)
[2018-09-27] MEDS: HYDROmorphONE 1 MG/ML SYG IV ×3 (05:39→19:39)
[2018-09-27 06:12] LABS: ADD MAN DIFF? NO
[2018-09-27 06:14] LABS: BASOPHILS % 0.3 % (0.0-2.0); EOSINOPHILS # 0.2 10^3/ul (0.0-0.5); HEMATOCRIT 24.7 % (42.0-52.0); HEMOGLOBIN 8.1 g/dl (14.0-18.0); LYMPHOCYTES # 1.8 10^3/ul (0.8-2.9); LYMPHOCYTES % 23.1 % (15.0-51.0); MEAN CORPUSCULAR HEMOGLOBIN 30.2 pg (29.0-33.0); MEAN CORPUSCULAR HGB CONC 32.8 g/dl (32.0-37.0); MEAN CORPUSCULAR VOLUME 92.2 fl (82.0-101.0); MEAN PLATELET VOLUME 11.3 fl (7.4-10.4); MONOCYTE # 0.7 10^3/ul (0.3-0.9); MONOCYTES % 8.4 % (0.0-11.0); NEUTROPHIL # 5.1 10^3/ul (1.6-7.5); NEUTROPHILS % 64.3 % (39.0-77.0); PLATELET COUNT 242 10^3/UL (140-415); RED BLOOD COUNT 2.68 10^6/ul (4.70-6.10); RED CELL DISTRIBUTION WIDTH 15.4 % (11.5-14.5)
[2018-09-27 06:57] LABS: ANION GAP 8 (5-13); BLOOD UREA NITROGEN 13 mg/dl (7-20); CALCIUM 8.8 mg/dl (8.4-10.2); CARBON DIOXIDE 26 mmol/L (21-31); CHLORIDE 104 mmol/L (97-110); Estimated GFR > 60 mL/min (>60); GLUCOSE 119 mg/dl (70-220); POTASSIUM 4.2 mmol/L (3.5-5.1); SODIUM 138 mmol/L (135-144)
[2018-09-27] MEDS: INSULIN ASPART [NOVOLOG] 3 ML PEN SC ×4 (07:55→21:47)
[2018-09-27] MEDS: LISINOPRIL 5 MG TAB PO (09:00)
[2018-09-27] MEDS: CLOPIDOGREL 75 MG TAB PO (09:00)
[2018-09-27] MEDS: NEOMYC/POLYMYX/BACIT 30 GM OINT TOP (09:18)
[2018-09-27] MEDS: LINAGLIPTIN 5 MG TABLET PO (09:19)
[2018-09-27] MEDS: GABAPENTIN 300 MG CAP PO (09:19)
[2018-09-27] MEDS: oxyCODONE (CR) 10 MG TAB [oxyCONTIN] PO ×2 (09:19→22:41)
[2018-09-27] MEDS: AMIODARONE 200 MG TAB PO (09:20)
[2018-09-27] MEDS: CYANOCOBALAMIN 1000 MCG INJ IM (09:21)
[2018-09-27] MEDS: EMPAGLIFLOZIN 10 MG TABLET PO (09:21)
[2018-09-27] MEDS: FUROSEMIDE 20 MG TAB PO (09:22)
[2018-09-27] MEDS: CEFEPIME 2GM/50 ML (PMX) 50 ML IVPB ×2 (09:30→21:26)
[2018-09-27] MEDS: DIGOXIN 0.125 MG TAB PO (13:18)
[2018-09-27] MEDS: DOCUSATE SODIUM 100 MG CAP PO (21:26)
[2018-09-27] MEDS: INSULIN GLARGINE [LANTus] (100 UNITS/ML) SYG SC (21:47)
[2018-09-28] MEDS: HYDROmorphONE 1 MG/ML SYG IV ×5 (00:08→23:33)
[2018-09-28] MEDS: ACCU-CHEK XX ×5 (02:53→21:00)
[2018-09-28] MEDS: VANCOMYCIN HCL 1.25 GM in SOD CHLORIDE 0.9% 250 ML IVPB ×2 (04:11→17:38)
[2018-09-28] MEDS: PANTOPRAZOLE (EC) 40 MG TAB PO (05:45)
[2018-09-28] MEDS: metroNIDAZOLE 500 MG/NS (PMX) 100 ML IVPB ×3 (05:45→22:32)
[2018-09-28] MEDS: INSULIN ASPART [NOVOLOG] 3 ML PEN SC ×4 (08:31→20:47)
[2018-09-28] MEDS: LINAGLIPTIN 5 MG TABLET PO (08:38)
[2018-09-28] MEDS: AMIODARONE 200 MG TAB PO (08:38)
[2018-09-28] MEDS: CYANOCOBALAMIN 1000 MCG INJ IM (08:38)
[2018-09-28] MEDS: oxyCODONE (CR) 10 MG TAB [oxyCONTIN] PO ×2 (08:38→21:56)
[2018-09-28] MEDS: LISINOPRIL 5 MG TAB PO (08:39)
[2018-09-28] MEDS: EMPAGLIFLOZIN 10 MG TABLET PO (08:40)
[2018-09-28] MEDS: FUROSEMIDE 20 MG TAB PO (08:40)
[2018-09-28] MEDS: GABAPENTIN 300 MG CAP PO (08:40)
[2018-09-28] MEDS: NEOMYC/POLYMYX/BACIT 30 GM OINT TOP (08:40)
[2018-09-28] MEDS: CEFEPIME 2GM/50 ML (PMX) 50 ML IVPB ×2 (08:43→20:46)
[2018-09-28 10:08] LABS: PROSTATE SPECIFIC ANTIGEN 0.4 ng/ml (0.0-4.0)
[2018-09-28] MEDS: DIGOXIN 0.125 MG TAB PO (13:26)
[2018-09-28 15:53] LABS: VANCOMYCIN,TROUGH 16.5 ug/ml (10.0-20.0)
[2018-09-28] MEDS: INSULIN GLARGINE [LANTus] (100 UNITS/ML) SYG SC (20:57)
[2018-09-29] MEDS: ACCU-CHEK XX ×5 (02:12→21:00)
[2018-09-29] MEDS: VANCOMYCIN HCL 1.25 GM in SOD CHLORIDE 0.9% 250 ML IVPB ×2 (03:19→15:50)
[2018-09-29] MEDS: HYDROmorphONE 1 MG/ML SYG IV ×3 (05:47→15:50)
[2018-09-29] MEDS: PANTOPRAZOLE (EC) 40 MG TAB PO (05:47)
[2018-09-29] MEDS: metroNIDAZOLE 500 MG/NS (PMX) 100 ML IVPB ×3 (05:47→21:29)
[2018-09-29 06:43] LABS: ADD MAN DIFF? NO
[2018-09-29 06:52] LABS: BASOPHILS % 0.2 % (0.0-2.0); EOSINOPHILS # 0.3 10^3/ul (0.0-0.5); HEMATOCRIT 24.7 % (42.0-52.0); HEMOGLOBIN 7.9 g/dl (14.0-18.0); LYMPHOCYTES # 2.2 10^3/ul (0.8-2.9); LYMPHOCYTES % 26.1 % (15.0-51.0); MEAN CORPUSCULAR HEMOGLOBIN 30.2 pg (29.0-33.0); MEAN CORPUSCULAR VOLUME 94.3 fl (82.0-101.0); MONOCYTE # 0.9 10^3/ul (0.3-0.9); MONOCYTES % 11.1 % (0.0-11.0); NEUTROPHIL # 4.9 10^3/ul (1.6-7.5); NEUTROPHILS % 57.7 % (39.0-77.0); PLATELET COUNT 293 10^3/UL (140-415); RED BLOOD COUNT 2.62 10^6/ul (4.70-6.10); RED CELL DISTRIBUTION WIDTH 15.5 % (11.5-14.5)
[2018-09-29 06:52] LABS: WHITE BLOOD COUNT 8.5 10^3/ul (4.8-10.8)
[2018-09-29 07:10] LABS: ANION GAP 5 (5-13); BLOOD UREA NITROGEN 17 mg/dl (7-20); CALCIUM 9.1 mg/dl (8.4-10.2); CARBON DIOXIDE 29 mmol/L (21-31); CHLORIDE 104 mmol/L (97-110); CREATININE 0.61 mg/dl (0.61-1.24); Estimated GFR > 60 mL/min (>60); GLUCOSE 109 mg/dl (70-220); POTASSIUM 4.4 mmol/L (3.5-5.1); SODIUM 138 mmol/L (135-144)
[2018-09-29] MEDS: INSULIN ASPART [NOVOLOG] 3 ML PEN SC ×4 (07:55→20:42)
[2018-09-29] MEDS: CEFEPIME 2GM/50 ML (PMX) 50 ML IVPB ×2 (08:30→20:41)
[2018-09-29] MEDS: GABAPENTIN 300 MG CAP PO (08:33)
[2018-09-29] MEDS: EMPAGLIFLOZIN 10 MG TABLET PO (08:33)
[2018-09-29] MEDS: oxyCODONE (CR) 10 MG TAB [oxyCONTIN] PO ×2 (08:33→20:42)
[2018-09-29] MEDS: FUROSEMIDE 20 MG TAB PO (08:34)
[2018-09-29] MEDS: AMIODARONE 200 MG TAB PO (08:34)
[2018-09-29] MEDS: LISINOPRIL 5 MG TAB PO ×2 (08:34→08:44)
[2018-09-29] MEDS: CYANOCOBALAMIN 1000 MCG INJ IM (08:35)
[2018-09-29] MEDS: NEOMYC/POLYMYX/BACIT 30 GM OINT TOP (08:35)
[2018-09-29] MEDS: LINAGLIPTIN 5 MG TABLET PO (08:35)
[2018-09-29] MEDS: DIGOXIN 0.125 MG TAB PO (12:54)
[2018-09-29] MEDS: SENNA TAB PO (18:46)
[2018-09-29] MEDS: DOCUSATE SODIUM 100 MG CAP PO (18:46)
[2018-09-29] MEDS: FUROSEMIDE 20 MG INJ IV (19:05)
[2018-09-29] MEDS: INSULIN GLARGINE [LANTus] (100 UNITS/ML) SYG SC (20:53)
[2018-09-30] MEDS: HYDROmorphONE 1 MG/ML SYG IV ×2 (00:02→05:29)
[2018-09-30] MEDS: ACCU-CHEK XX ×5 (02:00→20:34)
[2018-09-30] MEDS: VANCOMYCIN HCL 1.25 GM in SOD CHLORIDE 0.9% 250 ML IVPB (04:20)
[2018-09-30] MEDS: PANTOPRAZOLE (EC) 40 MG TAB PO (05:29)
[2018-09-30] MEDS: metroNIDAZOLE 500 MG/NS (PMX) 100 ML IVPB ×3 (05:29→22:34)
[2018-09-30] MEDS: FUROSEMIDE 20 MG INJ IV ×2 (06:55→17:36)
[2018-09-30] MEDS: INSULIN ASPART [NOVOLOG] 3 ML PEN SC ×4 (08:19→20:33)
[2018-09-30] MEDS: LINAGLIPTIN 5 MG TABLET PO (08:24)
[2018-09-30] MEDS: EMPAGLIFLOZIN 10 MG TABLET PO (08:24)
[2018-09-30] MEDS: AMIODARONE 200 MG TAB PO (08:25)
[2018-09-30] MEDS: oxyCODONE (CR) 10 MG TAB [oxyCONTIN] PO ×2 (08:25→20:23)
[2018-09-30] MEDS: GABAPENTIN 300 MG CAP PO (08:26)
[2018-09-30] MEDS: NEOMYC/POLYMYX/BACIT 30 GM OINT TOP (08:26)
[2018-09-30] MEDS: LISINOPRIL 5 MG TAB PO (08:26)
[2018-09-30] MEDS: CYANOCOBALAMIN 1000 MCG INJ IM (08:28)
[2018-09-30] MEDS: CEFEPIME 2GM/50 ML (PMX) 50 ML IVPB ×2 (08:41→20:35)
[2018-09-30] MEDS: SOD FERRIC GLUC COMPLX 125 MG in SOD CHLORIDE 0.9% 100 ML IVPB (12:15)
[2018-09-30] MEDS: DIGOXIN 0.125 MG TAB PO (12:23)
[2018-09-30] MEDS: HYDROmorphONE 0.5 MG/0.5 ML SYG IV ×2 (13:33→20:24)
[2018-09-30] MEDS: VANCOMYCIN 1 GM 250 ML IVPB (15:59)
[2018-09-30] MEDS: INSULIN GLARGINE [LANTus] (100 UNITS/ML) SYG SC (20:33)
[2018-10-01] MEDS: ACCU-CHEK XX ×5 (01:53→21:08)
[2018-10-01] MEDS: HYDROmorphONE 0.5 MG/0.5 ML SYG IV ×4 (01:58→20:57)
[2018-10-01] MEDS: VANCOMYCIN 1 GM 250 ML IVPB ×2 (04:22→16:15)
[2018-10-01] MEDS: FUROSEMIDE 20 MG INJ IV ×2 (06:00→17:43)
[2018-10-01] MEDS: PANTOPRAZOLE (EC) 40 MG TAB PO (06:00)
[2018-10-01 06:12] LABS: ADD MAN DIFF? NO
[2018-10-01 06:17] LABS: WHITE BLOOD COUNT 7.3 10^3/ul (4.8-10.8)
[2018-10-01 06:17] LABS: BASOPHILS % 0.3 % (0.0-2.0); EOSINOPHILS # 0.4 10^3/ul (0.0-0.5); EOSINOPHILS % 4.9 % (0.0-7.0); HEMATOCRIT 26.8 % (42.0-52.0); HEMOGLOBIN 8.5 g/dl (14.0-18.0); LYMPHOCYTES # 2.3 10^3/ul (0.8-2.9); LYMPHOCYTES % 30.8 % (15.0-51.0); MEAN CORPUSCULAR HEMOGLOBIN 29.5 pg (29.0-33.0); MEAN CORPUSCULAR HGB CONC 31.7 g/dl (32.0-37.0); MEAN CORPUSCULAR VOLUME 93.1 fl (82.0-101.0); MEAN PLATELET VOLUME 10.7 fl (7.4-10.4); MONOCYTE # 0.8 10^3/ul (0.3-0.9); MONOCYTES % 10.4 % (0.0-11.0); NEUTROPHIL # 3.9 10^3/ul (1.6-7.5); NEUTROPHILS % 53.1 % (39.0-77.0); PLATELET COUNT 336 10^3/UL (140-415); RED BLOOD COUNT 2.88 10^6/ul (4.70-6.10); RED CELL DISTRIBUTION WIDTH 15.3 % (11.5-14.5)
[2018-10-01] MEDS: metroNIDAZOLE 500 MG/NS (PMX) 100 ML IVPB ×3 (06:21→21:08)
[2018-10-01 06:42] LABS: ANION GAP 8 (5-13); BLOOD UREA NITROGEN 18 mg/dl (7-20); CALCIUM 9.3 mg/dl (8.4-10.2); CARBON DIOXIDE 30 mmol/L (21-31); CHLORIDE 102 mmol/L (97-110); CREATININE 0.61 mg/dl (0.61-1.24); Estimated GFR > 60 mL/min (>60); GLUCOSE 108 mg/dl (70-220); POTASSIUM 4.1 mmol/L (3.5-5.1); SODIUM 140 mmol/L (135-144)
[2018-10-01] MEDS ORDERED: LIDOCAINE 2% (SDV) 5 ML INJ (07:00)
[2018-10-01] MEDS ORDERED: ETOMIDATE 20 MG INJ (07:00)
[2018-10-01] MEDS ORDERED: PROPOFOL 200 MG INJ (07:00)
[2018-10-01] MEDS: INSULIN ASPART [NOVOLOG] 3 ML PEN SC ×4 (07:55→21:00)
[2018-10-01] MEDS: CYANOCOBALAMIN 1000 MCG INJ IM (08:37)
[2018-10-01] MEDS: EMPAGLIFLOZIN 10 MG TABLET PO (08:38)
[2018-10-01] MEDS: GABAPENTIN 300 MG CAP PO (08:38)
[2018-10-01] MEDS: AMIODARONE 200 MG TAB PO (08:38)
[2018-10-01] MEDS: LINAGLIPTIN 5 MG TABLET PO (08:38)
[2018-10-01] MEDS: LISINOPRIL 5 MG TAB PO (08:39)
[2018-10-01] MEDS: oxyCODONE (CR) 10 MG TAB [oxyCONTIN] PO ×2 (08:41→21:00)
[2018-10-01] MEDS: CEFEPIME 2GM/50 ML (PMX) 50 ML IVPB ×2 (08:42→21:19)
[2018-10-01] MEDS: NEOMYC/POLYMYX/BACIT 30 GM OINT TOP (08:42)
[2018-10-01] MEDS ORDERED: hydrALAzine 20 MG INJ IV (12:00)
[2018-10-01] MEDS ORDERED: LABETALOL HCL 20MG INJ IV (12:00)
[2018-10-01] MEDS ORDERED: FENTAnyl 50 MCG/ML VIAL IV (12:30)
[2018-10-01] MEDS: FENTAnyl 50 MCG/ML VIAL IV (12:40)
[2018-10-01] MEDS: SENNA TAB PO (13:31)
[2018-10-01] MEDS: DIGOXIN 0.125 MG TAB PO (13:31)
[2018-10-01] MEDS: DOCUSATE SODIUM 100 MG CAP PO (13:31)
[2018-10-01] MEDS: SOD FERRIC GLUC COMPLX 125 MG in SOD CHLORIDE 0.9% 100 ML IVPB (13:33)
[2018-10-01] MEDS: INSULIN GLARGINE [LANTus] (100 UNITS/ML) SYG SC (21:16)
[2018-10-02] MEDS: HYDROmorphONE 0.5 MG/0.5 ML SYG IV ×3 (01:31→18:43)
[2018-10-02] MEDS: ACCU-CHEK XX ×5 (02:00→21:00)
[2018-10-02] MEDS: VANCOMYCIN 1 GM 250 ML IVPB ×2 (04:24→15:58)
[2018-10-02 06:25] LABS: ADD MAN DIFF? NO
[2018-10-02 06:39] LABS: WHITE BLOOD COUNT 6.8 10^3/ul (4.8-10.8)
[2018-10-02 06:39] LABS: BASOPHILS % 0.3 % (0.0-2.0); EOSINOPHILS # 0.4 10^3/ul (0.0-0.5); EOSINOPHILS % 5.5 % (0.0-7.0); HEMATOCRIT 27.7 % (42.0-52.0); HEMOGLOBIN 8.6 g/dl (14.0-18.0); LYMPHOCYTES # 2.1 10^3/ul (0.8-2.9); LYMPHOCYTES % 30.9 % (15.0-51.0); MEAN CORPUSCULAR HEMOGLOBIN 29.1 pg (29.0-33.0); MEAN CORPUSCULAR VOLUME 93.6 fl (82.0-101.0); MONOCYTE # 0.8 10^3/ul (0.3-0.9); MONOCYTES % 11.2 % (0.0-11.0); NEUTROPHIL # 3.5 10^3/ul (1.6-7.5); NEUTROPHILS % 51.5 % (39.0-77.0); PLATELET COUNT 347 10^3/UL (140-415); RED BLOOD COUNT 2.96 10^6/ul (4.70-6.10); RED CELL DISTRIBUTION WIDTH 15.4 % (11.5-14.5)
[2018-10-02] MEDS: PANTOPRAZOLE (EC) 40 MG TAB PO (06:48)
[2018-10-02] MEDS: FUROSEMIDE 20 MG INJ IV ×2 (06:48→17:41)
[2018-10-02] MEDS: metroNIDAZOLE 500 MG/NS (PMX) 100 ML IVPB ×3 (06:48→23:16)
[2018-10-02 07:06] LABS: ANION GAP 3 (5-13); BLOOD UREA NITROGEN 16 mg/dl (7-20); CARBON DIOXIDE 29 mmol/L (21-31); CHLORIDE 105 mmol/L (97-110); CREATININE 0.72 mg/dl (0.61-1.24); Estimated GFR > 60 mL/min (>60); GLUCOSE 125 mg/dl (70-220); POTASSIUM 4.3 mmol/L (3.5-5.1); SODIUM 137 mmol/L (135-144)
[2018-10-02] MEDS: INSULIN ASPART [NOVOLOG] 3 ML PEN SC ×4 (07:55→21:00)
[2018-10-02] MEDS: LISINOPRIL 5 MG TAB PO (09:00)
[2018-10-02] MEDS: CYANOCOBALAMIN 1000 MCG INJ IM (09:52)
[2018-10-02] MEDS: EMPAGLIFLOZIN 10 MG TABLET PO (09:54)
[2018-10-02] MEDS: CEFEPIME 2GM/50 ML (PMX) 50 ML IVPB ×2 (09:54→20:55)
[2018-10-02] MEDS: GABAPENTIN 300 MG CAP PO (09:54)
[2018-10-02] MEDS: oxyCODONE (CR) 10 MG TAB [oxyCONTIN] PO ×2 (09:55→20:53)
[2018-10-02] MEDS: LINAGLIPTIN 5 MG TABLET PO (09:55)
[2018-10-02] MEDS: NEOMYC/POLYMYX/BACIT 30 GM OINT TOP (09:56)
[2018-10-02] MEDS: AMIODARONE 200 MG TAB PO (09:56)
[2018-10-02] MEDS: SOD FERRIC GLUC COMPLX 125 MG in SOD CHLORIDE 0.9% 100 ML IVPB (12:12)
[2018-10-02] MEDS: DIGOXIN 0.125 MG TAB PO (12:13)
[2018-10-02 15:43] LABS: VANCOMYCIN,TROUGH 7.8 ug/ml (10.0-20.0)
[2018-10-02] MEDS: INSULIN GLARGINE [LANTus] (100 UNITS/ML) SYG SC (21:02)
[2018-10-03] MEDS: HYDROmorphONE 0.5 MG/0.5 ML SYG IV ×5 (00:11→23:44)
[2018-10-03] MEDS: VANCOMYCIN HCL 1.25 GM in SOD CHLORIDE 0.9% 250 ML IVPB ×2 (00:11→12:11)
[2018-10-03] MEDS: ACCU-CHEK XX ×5 (02:00→21:17)
[2018-10-03] MEDS: PANTOPRAZOLE (EC) 40 MG TAB PO (05:45)
[2018-10-03] MEDS: FUROSEMIDE 20 MG INJ IV ×2 (05:45→17:58)
[2018-10-03] MEDS: metroNIDAZOLE 500 MG/NS (PMX) 100 ML IVPB ×3 (05:46→21:57)
[2018-10-03] MEDS: INSULIN ASPART [NOVOLOG] 3 ML PEN SC ×4 (07:55→21:15)
[2018-10-03] MEDS: CYANOCOBALAMIN 1000 MCG INJ IM (08:21)
[2018-10-03] MEDS: EMPAGLIFLOZIN 10 MG TABLET PO (08:21)
[2018-10-03] MEDS: GABAPENTIN 300 MG CAP PO (08:21)
[2018-10-03] MEDS: oxyCODONE (CR) 10 MG TAB [oxyCONTIN] PO ×2 (08:21→20:57)
[2018-10-03] MEDS: LINAGLIPTIN 5 MG TABLET PO (08:21)
[2018-10-03] MEDS: LISINOPRIL 5 MG TAB PO (08:22)
[2018-10-03] MEDS: NEOMYC/POLYMYX/BACIT 30 GM OINT TOP (08:22)
[2018-10-03] MEDS: AMIODARONE 200 MG TAB PO (08:22)
[2018-10-03] MEDS: CEFEPIME 2GM/50 ML (PMX) 50 ML IVPB ×2 (09:14→20:58)
[2018-10-03] MEDS: SOD FERRIC GLUC COMPLX 125 MG in SOD CHLORIDE 0.9% 100 ML IVPB (12:11)
[2018-10-03] MEDS: DIGOXIN 0.125 MG TAB PO (12:11)
[2018-10-03] MEDS: SENNA TAB PO (21:12)
[2018-10-03] MEDS: DOCUSATE SODIUM 100 MG CAP PO (21:12)
[2018-10-03] MEDS: INSULIN GLARGINE [LANTus] (100 UNITS/ML) SYG SC (21:15)
[2018-10-04] MEDS: VANCOMYCIN HCL 1.25 GM in SOD CHLORIDE 0.9% 250 ML IVPB ×2 (01:04→13:52)
[2018-10-04] MEDS: ACCU-CHEK XX ×5 (01:09→21:42)
[2018-10-04] MEDS: metroNIDAZOLE 500 MG/NS (PMX) 100 ML IVPB ×3 (05:16→21:40)
[2018-10-04] MEDS: FUROSEMIDE 20 MG INJ IV ×2 (05:27→17:16)
[2018-10-04] MEDS: PANTOPRAZOLE (EC) 40 MG TAB PO (05:27)
[2018-10-04] MEDS: HYDROmorphONE 0.5 MG/0.5 ML SYG IV ×4 (05:27→20:20)
[2018-10-04 06:38] LABS: BLOOD UREA NITROGEN 17 mg/dl (7-20)
[2018-10-04] MEDS: INSULIN ASPART [NOVOLOG] 3 ML PEN SC ×4 (07:49→20:34)
[2018-10-04] MEDS: EMPAGLIFLOZIN 10 MG TABLET PO (08:41)
[2018-10-04] MEDS: GABAPENTIN 300 MG CAP PO (08:42)
[2018-10-04] MEDS: AMIODARONE 200 MG TAB PO (08:42)
[2018-10-04] MEDS: CYANOCOBALAMIN 1000 MCG INJ IM (08:43)
[2018-10-04] MEDS: LINAGLIPTIN 5 MG TABLET PO (08:43)
[2018-10-04] MEDS: CEFEPIME 2GM/50 ML (PMX) 50 ML IVPB ×2 (08:43→20:20)
[2018-10-04] MEDS: LISINOPRIL 5 MG TAB PO (08:43)
[2018-10-04] MEDS: NEOMYC/POLYMYX/BACIT 30 GM OINT TOP (08:44)
[2018-10-04] MEDS: oxyCODONE (CR) 10 MG TAB [oxyCONTIN] PO ×2 (09:01→21:39)
[2018-10-04] MEDS: SOD FERRIC GLUC COMPLX 125 MG in SOD CHLORIDE 0.9% 100 ML IVPB (12:38)
[2018-10-04] MEDS: DIGOXIN 0.125 MG TAB PO (12:38)
[2018-10-04] MEDS: INSULIN GLARGINE [LANTus] (100 UNITS/ML) SYG SC (20:35)
[2018-10-04] MEDS: DOCUSATE SODIUM 100 MG CAP PO (20:43)
[2018-10-05] MEDS: HYDROmorphONE 0.5 MG/0.5 ML SYG IV ×4 (01:05→20:45)
[2018-10-05 01:26] LABS: VANCOMYCIN,TROUGH 14.9 ug/ml (10.0-20.0)
[2018-10-05] MEDS: VANCOMYCIN HCL 1.25 GM in SOD CHLORIDE 0.9% 250 ML IVPB ×2 (01:41→12:11)
[2018-10-05] MEDS: ACCU-CHEK XX ×5 (02:00→21:00)
[2018-10-05] MEDS: FUROSEMIDE 20 MG INJ IV ×3 (06:00→19:02)
[2018-10-05] MEDS: metroNIDAZOLE 500 MG/NS (PMX) 100 ML IVPB ×3 (06:10→21:45)
[2018-10-05] MEDS: PANTOPRAZOLE (EC) 40 MG TAB PO (06:10)
[2018-10-05 06:45] LABS: ADD MAN DIFF? NO
[2018-10-05 06:51] LABS: BASOPHILS % 0.4 % (0.0-2.0); EOSINOPHILS # 0.3 10^3/ul (0.0-0.5); EOSINOPHILS % 3.9 % (0.0-7.0); HEMATOCRIT 29.4 % (42.0-52.0); LYMPHOCYTES # 1.9 10^3/ul (0.8-2.9); LYMPHOCYTES % 25.5 % (15.0-51.0); MEAN CORPUSCULAR HEMOGLOBIN 29.2 pg (29.0-33.0); MEAN CORPUSCULAR HGB CONC 30.6 g/dl (32.0-37.0); MEAN CORPUSCULAR VOLUME 95.5 fl (82.0-101.0); MEAN PLATELET VOLUME 10.6 fl (7.4-10.4); MONOCYTE # 0.8 10^3/ul (0.3-0.9); MONOCYTES % 9.9 % (0.0-11.0); NEUTROPHIL # 4.5 10^3/ul (1.6-7.5); NEUTROPHILS % 59.5 % (39.0-77.0); PLATELET COUNT 331 10^3/UL (140-415); RED BLOOD COUNT 3.08 10^6/ul (4.70-6.10); RED CELL DISTRIBUTION WIDTH 17.1 % (11.5-14.5)
[2018-10-05 06:51] LABS: WHITE BLOOD COUNT 7.6 10^3/ul (4.8-10.8)
[2018-10-05 07:21] LABS: ANION GAP 7 (5-13); BLOOD UREA NITROGEN 18 mg/dl (7-20); CALCIUM 9.2 mg/dl (8.4-10.2); CARBON DIOXIDE 28 mmol/L (21-31); CHLORIDE 102 mmol/L (97-110); CREATININE 0.65 mg/dl (0.61-1.24); Estimated GFR > 60 mL/min (>60); GLUCOSE 115 mg/dl (70-220); POTASSIUM 4.1 mmol/L (3.5-5.1); SODIUM 137 mmol/L (135-144)
[2018-10-05] MEDS: INSULIN ASPART [NOVOLOG] 3 ML PEN SC ×4 (07:55→21:03)
[2018-10-05] MEDS: LINAGLIPTIN 5 MG TABLET PO (08:27)
[2018-10-05] MEDS: EMPAGLIFLOZIN 10 MG TABLET PO (08:27)
[2018-10-05] MEDS: AMIODARONE 200 MG TAB PO (08:28)
[2018-10-05] MEDS: LISINOPRIL 5 MG TAB PO (08:28)
[2018-10-05] MEDS: CYANOCOBALAMIN 1000 MCG INJ IM (08:29)
[2018-10-05] MEDS: CEFEPIME 2GM/50 ML (PMX) 50 ML IVPB ×2 (08:33→20:40)
[2018-10-05] MEDS: GABAPENTIN 300 MG CAP PO (08:40)
[2018-10-05] MEDS: oxyCODONE (CR) 10 MG TAB [oxyCONTIN] PO ×2 (08:40→21:45)
[2018-10-05] MEDS: NEOMYC/POLYMYX/BACIT 30 GM OINT TOP (08:41)
[2018-10-05] MEDS: DIGOXIN 0.125 MG TAB PO (13:16)
[2018-10-05] MEDS: INSULIN GLARGINE [LANTus] (100 UNITS/ML) SYG SC (20:43)
[2018-10-06] MEDS: VANCOMYCIN HCL 1.25 GM in SOD CHLORIDE 0.9% 250 ML IVPB ×2 (00:43→12:23)
[2018-10-06] MEDS: HYDROmorphONE 0.5 MG/0.5 ML SYG IV ×6 (00:44→23:35)
[2018-10-06] MEDS: ACCU-CHEK XX ×5 (02:34→21:26)
[2018-10-06] MEDS: PANTOPRAZOLE (EC) 40 MG TAB PO (05:02)
[2018-10-06] MEDS: metroNIDAZOLE 500 MG/NS (PMX) 100 ML IVPB ×3 (05:03→21:26)
[2018-10-06] MEDS: FUROSEMIDE 20 MG INJ IV ×2 (06:00→18:07)
[2018-10-06] MEDS: INSULIN ASPART [NOVOLOG] 3 ML PEN SC ×4 (07:44→21:32)
[2018-10-06] MEDS: EMPAGLIFLOZIN 10 MG TABLET PO (07:45)
[2018-10-06] MEDS: LINAGLIPTIN 5 MG TABLET PO (07:45)
[2018-10-06] MEDS: LISINOPRIL 5 MG TAB PO (08:58)
[2018-10-06] MEDS: GABAPENTIN 300 MG CAP PO (09:06)
[2018-10-06] MEDS: AMIODARONE 200 MG TAB PO (09:06)
[2018-10-06] MEDS: CEFEPIME 2GM/50 ML (PMX) 50 ML IVPB ×2 (09:09→22:20)
[2018-10-06] MEDS: CYANOCOBALAMIN 1000 MCG INJ IM (09:12)
[2018-10-06] MEDS: NEOMYC/POLYMYX/BACIT 30 GM OINT TOP (09:15)
[2018-10-06] MEDS: oxyCODONE (CR) 10 MG TAB [oxyCONTIN] PO ×2 (10:42→21:25)
[2018-10-06] MEDS: DIGOXIN 0.125 MG TAB PO (12:24)
[2018-10-06] MEDS: INSULIN GLARGINE [LANTus] (100 UNITS/ML) SYG SC (21:33)
[2018-10-06] MEDS: DOCUSATE SODIUM 100 MG CAP PO (21:36)
[2018-10-06] MEDS: SENNA TAB PO (21:36)
[2018-10-07] MEDS: ACCU-CHEK XX ×5 (01:56→20:37)
[2018-10-07] MEDS: VANCOMYCIN HCL 1.25 GM in SOD CHLORIDE 0.9% 250 ML IVPB ×2 (02:02→13:07)
[2018-10-07] MEDS: HYDROmorphONE 0.5 MG/0.5 ML SYG IV ×5 (03:48→22:54)
[2018-10-07] MEDS: PANTOPRAZOLE (EC) 40 MG TAB PO (06:07)
[2018-10-07] MEDS: metroNIDAZOLE 500 MG/NS (PMX) 100 ML IVPB ×3 (06:07→21:43)
[2018-10-07] MEDS: FUROSEMIDE 20 MG INJ IV ×2 (06:13→17:51)
[2018-10-07] MEDS: EMPAGLIFLOZIN 10 MG TABLET PO (07:36)
[2018-10-07] MEDS: LINAGLIPTIN 5 MG TABLET PO (07:37)
[2018-10-07] MEDS: INSULIN ASPART [NOVOLOG] 3 ML PEN SC ×4 (07:41→20:24)
[2018-10-07] MEDS: GABAPENTIN 300 MG CAP PO (08:26)
[2018-10-07] MEDS: CYANOCOBALAMIN 1000 MCG INJ IM (08:26)
[2018-10-07] MEDS: CEFEPIME 2GM/50 ML (PMX) 50 ML IVPB ×2 (08:31→20:19)
[2018-10-07] MEDS: LISINOPRIL 5 MG TAB PO (08:36)
[2018-10-07] MEDS: AMIODARONE 200 MG TAB PO (08:36)
[2018-10-07] MEDS: NEOMYC/POLYMYX/BACIT 30 GM OINT TOP (08:38)
[2018-10-07] MEDS: DIGOXIN 0.125 MG TAB PO (13:07)
[2018-10-07] MEDS: oxyCODONE (CR) 10 MG TAB [oxyCONTIN] PO ×2 (13:08→20:16)
[2018-10-07] MEDS: LIDOCAINE 1% (MPF) 5 ML VIAL SC (15:30)
[2018-10-07] MEDS: DOCUSATE SODIUM 100 MG CAP PO (20:30)
[2018-10-07] MEDS: INSULIN GLARGINE [LANTus] (100 UNITS/ML) SYG SC (20:35)
[2018-10-08] MEDS: VANCOMYCIN HCL 1.25 GM in SOD CHLORIDE 0.9% 250 ML IVPB ×2 (00:21→12:24)
[2018-10-08] MEDS: ACCU-CHEK XX ×5 (01:49→20:27)
[2018-10-08] MEDS: HYDROmorphONE 0.5 MG/0.5 ML SYG IV ×6 (04:29→21:47)
[2018-10-08] MEDS: FUROSEMIDE 20 MG INJ IV ×2 (05:19→18:00)
[2018-10-08] MEDS: metroNIDAZOLE 500 MG/NS (PMX) 100 ML IVPB ×3 (05:22→21:45)
[2018-10-08] MEDS: PANTOPRAZOLE (EC) 40 MG TAB PO (05:22)
[2018-10-08 07:26] LABS: CREATININE 0.59 mg/dl (0.61-1.24)
[2018-10-08 07:26] LABS: BLOOD UREA NITROGEN 18 mg/dl (7-20)
[2018-10-08] MEDS: INSULIN ASPART [NOVOLOG] 3 ML PEN SC ×4 (07:50→20:27)
[2018-10-08] MEDS: LINAGLIPTIN 5 MG TABLET PO (08:26)
[2018-10-08] MEDS: AMIODARONE 200 MG TAB PO (08:26)
[2018-10-08] MEDS: GABAPENTIN 300 MG CAP PO (08:27)
[2018-10-08] MEDS: oxyCODONE (CR) 10 MG TAB [oxyCONTIN] PO ×2 (08:27→20:23)
[2018-10-08] MEDS: LISINOPRIL 5 MG TAB PO (08:28)
[2018-10-08] MEDS: EMPAGLIFLOZIN 10 MG TABLET PO (08:29)
[2018-10-08] MEDS: CYANOCOBALAMIN 1000 MCG INJ IM (08:32)
[2018-10-08] MEDS: DOCUSATE SODIUM 100 MG CAP PO (08:35)
[2018-10-08] MEDS: CEFEPIME 2GM/50 ML (PMX) 50 ML IVPB ×2 (08:38→21:44)
[2018-10-08] MEDS: NEOMYC/POLYMYX/BACIT 30 GM OINT TOP (08:40)
[2018-10-08] MEDS: DIGOXIN 0.125 MG TAB PO (12:24)
[2018-10-08] MEDS: INSULIN GLARGINE [LANTus] (100 UNITS/ML) SYG SC (20:34)
[2018-10-09] MEDS: VANCOMYCIN HCL 1.25 GM in SOD CHLORIDE 0.9% 250 ML IVPB ×2 (00:18→13:06)
[2018-10-09] MEDS: ACCU-CHEK XX ×5 (01:04→20:25)
[2018-10-09] MEDS: HYDROmorphONE 0.5 MG/0.5 ML SYG IV ×5 (02:53→20:31)
[2018-10-09] MEDS: FUROSEMIDE 20 MG INJ IV ×2 (05:28→18:19)
[2018-10-09] MEDS: PANTOPRAZOLE (EC) 40 MG TAB PO (05:28)
[2018-10-09] MEDS: metroNIDAZOLE 500 MG/NS (PMX) 100 ML IVPB ×3 (05:29→20:32)
[2018-10-09] MEDS: INSULIN ASPART [NOVOLOG] 3 ML PEN SC ×4 (07:55→20:25)
[2018-10-09] MEDS: CYANOCOBALAMIN 1000 MCG INJ IM (08:06)
[2018-10-09] MEDS: NEOMYC/POLYMYX/BACIT 30 GM OINT TOP (08:08)
[2018-10-09] MEDS: EMPAGLIFLOZIN 10 MG TABLET PO (08:09)
[2018-10-09] MEDS: oxyCODONE (CR) 10 MG TAB [oxyCONTIN] PO ×3 (08:09→21:25)
[2018-10-09] MEDS: GABAPENTIN 300 MG CAP PO (08:09)
[2018-10-09] MEDS: LISINOPRIL 5 MG TAB PO (08:10)
[2018-10-09] MEDS: CEFEPIME 2GM/50 ML (PMX) 50 ML IVPB ×2 (08:10→20:26)
[2018-10-09] MEDS: LINAGLIPTIN 5 MG TABLET PO (08:10)
[2018-10-09] MEDS: AMIODARONE 200 MG TAB PO (08:11)
[2018-10-09] MEDS: DIGOXIN 0.125 MG TAB PO (13:06)
[2018-10-09] MEDS: INSULIN GLARGINE [LANTus] (100 UNITS/ML) SYG SC (20:28)
[2018-10-10] MEDS: VANCOMYCIN HCL 1.25 GM in SOD CHLORIDE 0.9% 250 ML IVPB ×2 (00:22→12:17)
[2018-10-10] MEDS: HYDROmorphONE 0.5 MG/0.5 ML SYG IV ×6 (00:22→20:03)
[2018-10-10] MEDS: ACCU-CHEK XX ×5 (02:00→21:01)
[2018-10-10] MEDS: metroNIDAZOLE 500 MG/NS (PMX) 100 ML IVPB ×2 (05:31→15:25)
[2018-10-10] MEDS: PANTOPRAZOLE (EC) 40 MG TAB PO (05:31)
[2018-10-10] MEDS: FUROSEMIDE 20 MG INJ IV ×2 (05:32→17:44)
[2018-10-10 06:18] LABS: ADD MAN DIFF? NO
[2018-10-10 06:25] LABS: WHITE BLOOD COUNT 6.2 10^3/ul (4.8-10.8)
[2018-10-10 06:25] LABS: BASOPHILS % 0.5 % (0.0-2.0); EOSINOPHILS # 0.4 10^3/ul (0.0-0.5); EOSINOPHILS % 5.6 % (0.0-7.0); HEMATOCRIT 32.9 % (42.0-52.0); HEMOGLOBIN 10.2 g/dl (14.0-18.0); LYMPHOCYTES # 1.5 10^3/ul (0.8-2.9); LYMPHOCYTES % 24.5 % (15.0-51.0); MEAN CORPUSCULAR HEMOGLOBIN 29.7 pg (29.0-33.0); MEAN CORPUSCULAR VOLUME 95.6 fl (82.0-101.0); MEAN PLATELET VOLUME 10.8 fl (7.4-10.4); MONOCYTE # 0.7 10^3/ul (0.3-0.9); MONOCYTES % 11.9 % (0.0-11.0); NEUTROPHIL # 3.5 10^3/ul (1.6-7.5); NEUTROPHILS % 56.9 % (39.0-77.0); PLATELET COUNT 238 10^3/UL (140-415); RED BLOOD COUNT 3.44 10^6/ul (4.70-6.10); RED CELL DISTRIBUTION WIDTH 16.8 % (11.5-14.5)
[2018-10-10 07:14] LABS: ANION GAP 6 (5-13); BLOOD UREA NITROGEN 19 mg/dl (7-20); CALCIUM 9.1 mg/dl (8.4-10.2); CARBON DIOXIDE 31 mmol/L (21-31); CHLORIDE 102 mmol/L (97-110); Estimated GFR > 60 mL/min (>60); GLUCOSE 101 mg/dl (70-220); POTASSIUM 4.5 mmol/L (3.5-5.1); SODIUM 139 mmol/L (135-144)
[2018-10-10] MEDS: INSULIN ASPART [NOVOLOG] 3 ML PEN SC ×4 (07:55→20:20)
[2018-10-10] MEDS: AMIODARONE 200 MG TAB PO (08:32)
[2018-10-10] MEDS: CYANOCOBALAMIN 1000 MCG INJ IM (08:33)
[2018-10-10] MEDS: CEFEPIME 2GM/50 ML (PMX) 50 ML IVPB ×2 (08:33→21:34)
[2018-10-10] MEDS: oxyCODONE (CR) 10 MG TAB [oxyCONTIN] PO ×3 (08:34→21:38)
[2018-10-10] MEDS: EMPAGLIFLOZIN 10 MG TABLET PO (08:34)
[2018-10-10] MEDS: GABAPENTIN 300 MG CAP PO (08:34)
[2018-10-10] MEDS: LINAGLIPTIN 5 MG TABLET PO (08:34)
[2018-10-10] MEDS: NEOMYC/POLYMYX/BACIT 30 GM OINT TOP (08:35)
[2018-10-10] MEDS: LISINOPRIL 5 MG TAB PO (08:35)
[2018-10-10] MEDS: DIGOXIN 0.125 MG TAB PO (12:35)
[2018-10-10] MEDS: INSULIN GLARGINE [LANTus] (100 UNITS/ML) SYG SC (20:19)
[2018-10-11] MEDS: metroNIDAZOLE 500 MG/NS (PMX) 100 ML IVPB ×4 (00:19→21:01)
[2018-10-11] MEDS: HYDROmorphONE 0.5 MG/0.5 ML SYG IV ×4 (00:20→12:51)
[2018-10-11] MEDS: VANCOMYCIN HCL 1.25 GM in SOD CHLORIDE 0.9% 250 ML IVPB ×2 (01:33→11:38)
[2018-10-11] MEDS: ACCU-CHEK XX ×5 (01:33→21:00)
[2018-10-11] MEDS: FUROSEMIDE 20 MG INJ IV ×2 (05:48→16:51)
[2018-10-11] MEDS: PANTOPRAZOLE (EC) 40 MG TAB PO (05:49)
[2018-10-11] MEDS: INSULIN ASPART [NOVOLOG] 3 ML PEN SC ×4 (07:45→21:00)
[2018-10-11] MEDS: CEFEPIME 2GM/50 ML (PMX) 50 ML IVPB ×2 (07:49→22:30)
[2018-10-11] MEDS: CYANOCOBALAMIN 1000 MCG INJ IM (07:50)
[2018-10-11] MEDS: AMIODARONE 200 MG TAB PO (07:51)
[2018-10-11] MEDS: LINAGLIPTIN 5 MG TABLET PO (07:51)
[2018-10-11] MEDS: EMPAGLIFLOZIN 10 MG TABLET PO (07:51)
[2018-10-11] MEDS: GABAPENTIN 300 MG CAP PO (07:52)
[2018-10-11] MEDS: LISINOPRIL 5 MG TAB PO (07:52)
[2018-10-11] MEDS: NEOMYC/POLYMYX/BACIT 30 GM OINT TOP (09:00)
[2018-10-11] MEDS: oxyCODONE (CR) 10 MG TAB [oxyCONTIN] PO ×2 (10:15→21:09)
[2018-10-11] MEDS: DIGOXIN 0.125 MG TAB PO (11:38)
[2018-10-11] MEDS: HYDROmorphONE 1 MG/ML SYG IV ×2 (16:51→20:56)
[2018-10-11] MEDS: INSULIN GLARGINE [LANTus] (100 UNITS/ML) SYG SC (21:12)
[2018-10-12] MEDS: VANCOMYCIN HCL 1.25 GM in SOD CHLORIDE 0.9% 250 ML IVPB ×2 (01:05→13:07)
[2018-10-12] MEDS: ACCU-CHEK XX ×5 (01:05→21:00)
[2018-10-12] MEDS: HYDROmorphONE 1 MG/ML SYG IV ×6 (01:05→21:02)
[2018-10-12] MEDS: metroNIDAZOLE 500 MG/NS (PMX) 100 ML IVPB ×3 (05:04→22:01)
[2018-10-12] MEDS: FUROSEMIDE 20 MG INJ IV ×2 (05:05→16:55)
[2018-10-12] MEDS: PANTOPRAZOLE (EC) 40 MG TAB PO (06:10)
[2018-10-12] MEDS: LISINOPRIL 5 MG TAB PO (07:44)
[2018-10-12] MEDS: AMIODARONE 200 MG TAB PO (07:44)
[2018-10-12] MEDS: CEFEPIME 2GM/50 ML (PMX) 50 ML IVPB ×2 (07:45→21:06)
[2018-10-12] MEDS: EMPAGLIFLOZIN 10 MG TABLET PO (07:45)
[2018-10-12] MEDS: GABAPENTIN 300 MG CAP PO (07:45)
[2018-10-12] MEDS: oxyCODONE (CR) 10 MG TAB [oxyCONTIN] PO ×2 (07:46→21:03)
[2018-10-12] MEDS: CYANOCOBALAMIN 1000 MCG INJ IM (07:46)
[2018-10-12] MEDS: INSULIN ASPART [NOVOLOG] 3 ML PEN SC ×4 (07:47→21:00)
[2018-10-12] MEDS: LINAGLIPTIN 5 MG TABLET PO (07:47)
[2018-10-12] MEDS: NEOMYC/POLYMYX/BACIT 30 GM OINT TOP (07:47)
[2018-10-12] MEDS: DIGOXIN 0.125 MG TAB PO (13:07)
[2018-10-12] MEDS: DOCUSATE SODIUM 100 MG CAP PO (16:55)
[2018-10-12] MEDS: INSULIN GLARGINE [LANTus] (100 UNITS/ML) SYG SC (21:16)
[2018-10-13] MEDS: ACCU-CHEK XX ×5 (01:01→21:01)
[2018-10-13] MEDS: VANCOMYCIN HCL 1.25 GM in SOD CHLORIDE 0.9% 250 ML IVPB ×2 (01:01→12:54)
[2018-10-13] MEDS: HYDROmorphONE 1 MG/ML SYG IV ×5 (01:01→21:55)
[2018-10-13] MEDS: PANTOPRAZOLE (EC) 40 MG TAB PO (05:14)
[2018-10-13] MEDS: FUROSEMIDE 20 MG INJ IV ×2 (05:15→17:49)
[2018-10-13] MEDS: metroNIDAZOLE 500 MG/NS (PMX) 100 ML IVPB ×3 (05:15→22:05)
[2018-10-13] MEDS: INSULIN ASPART [NOVOLOG] 3 ML PEN SC ×4 (07:55→21:00)
[2018-10-13] MEDS: GABAPENTIN 300 MG CAP PO (08:54)
[2018-10-13] MEDS: CYANOCOBALAMIN 1000 MCG INJ IM (08:54)
[2018-10-13] MEDS: AMIODARONE 200 MG TAB PO (08:55)
[2018-10-13] MEDS: EMPAGLIFLOZIN 10 MG TABLET PO (08:55)
[2018-10-13] MEDS: LISINOPRIL 5 MG TAB PO (08:55)
[2018-10-13] MEDS: NEOMYC/POLYMYX/BACIT 30 GM OINT TOP (08:56)
[2018-10-13] MEDS: LINAGLIPTIN 5 MG TABLET PO (08:56)
[2018-10-13] MEDS: oxyCODONE (CR) 10 MG TAB [oxyCONTIN] PO ×2 (09:08→20:45)
[2018-10-13] MEDS: CEFEPIME 2GM/50 ML (PMX) 50 ML IVPB ×2 (09:09→20:43)
[2018-10-13] MEDS: DIGOXIN 0.125 MG TAB PO (12:54)
[2018-10-13] MEDS: DOCUSATE SODIUM 100 MG CAP PO (20:45)
[2018-10-13] MEDS: INSULIN GLARGINE [LANTus] (100 UNITS/ML) SYG SC (21:00)
[2018-10-14] MEDS: VANCOMYCIN HCL 1.25 GM in SOD CHLORIDE 0.9% 250 ML IVPB ×2 (01:37→13:32)
[2018-10-14] MEDS: HYDROmorphONE 1 MG/ML SYG IV ×5 (02:42→21:24)
[2018-10-14] MEDS: ACCU-CHEK XX ×5 (02:59→21:15)
[2018-10-14] MEDS: FUROSEMIDE 20 MG INJ IV ×2 (06:00→17:22)
[2018-10-14] MEDS: metroNIDAZOLE 500 MG/NS (PMX) 100 ML IVPB ×3 (06:05→22:49)
[2018-10-14] MEDS: PANTOPRAZOLE (EC) 40 MG TAB PO (06:06)
[2018-10-14] MEDS: INSULIN ASPART [NOVOLOG] 3 ML PEN SC ×4 (07:55→21:00)
[2018-10-14] MEDS: LISINOPRIL 5 MG TAB PO (09:00)
[2018-10-14] MEDS: AMIODARONE 200 MG TAB PO (09:00)
[2018-10-14] MEDS: NEOMYC/POLYMYX/BACIT 30 GM OINT TOP (09:00)
[2018-10-14] MEDS: CEFEPIME 2GM/50 ML (PMX) 50 ML IVPB ×2 (09:17→21:19)
[2018-10-14] MEDS: CYANOCOBALAMIN 1000 MCG INJ IM (09:18)
[2018-10-14] MEDS: EMPAGLIFLOZIN 10 MG TABLET PO (09:18)
[2018-10-14] MEDS: GABAPENTIN 300 MG CAP PO (09:18)
[2018-10-14] MEDS: DOCUSATE SODIUM 100 MG CAP PO (09:19)
[2018-10-14] MEDS: LINAGLIPTIN 5 MG TABLET PO (09:19)
[2018-10-14] MEDS: oxyCODONE (CR) 10 MG TAB [oxyCONTIN] PO ×2 (09:19→22:49)
[2018-10-14 12:57] LABS: VANCOMYCIN,TROUGH 12.6 ug/ml (10.0-20.0)
[2018-10-14] MEDS: DIGOXIN 0.125 MG TAB PO (13:39)
[2018-10-14] MEDS: INSULIN GLARGINE [LANTus] (100 UNITS/ML) SYG SC (21:46)
[2018-10-15] MEDS: ACCU-CHEK XX ×5 (01:03→21:44)
[2018-10-15] MEDS: VANCOMYCIN HCL 1.25 GM in SOD CHLORIDE 0.9% 250 ML IVPB ×2 (01:08→12:07)
[2018-10-15] MEDS: HYDROmorphONE 1 MG/ML SYG IV ×6 (01:32→21:33)
[2018-10-15] MEDS: metroNIDAZOLE 500 MG/NS (PMX) 100 ML IVPB ×3 (06:45→21:55)
[2018-10-15] MEDS: PANTOPRAZOLE (EC) 40 MG TAB PO (06:45)
[2018-10-15] MEDS: FUROSEMIDE 20 MG INJ IV ×2 (06:46→16:43)
[2018-10-15] MEDS: INSULIN ASPART [NOVOLOG] 3 ML PEN SC ×4 (07:55→21:00)
[2018-10-15] MEDS: NEOMYC/POLYMYX/BACIT 30 GM OINT TOP (08:04)
[2018-10-15] MEDS: CYANOCOBALAMIN 1000 MCG INJ IM (08:04)
[2018-10-15] MEDS: AMIODARONE 200 MG TAB PO (08:05)
[2018-10-15] MEDS: CEFEPIME 2GM/50 ML (PMX) 50 ML IVPB ×2 (08:05→21:54)
[2018-10-15] MEDS: EMPAGLIFLOZIN 10 MG TABLET PO (08:05)
[2018-10-15] MEDS: GABAPENTIN 300 MG CAP PO (08:05)
[2018-10-15] MEDS: LINAGLIPTIN 5 MG TABLET PO (08:06)
[2018-10-15] MEDS: oxyCODONE (CR) 10 MG TAB [oxyCONTIN] PO ×2 (08:06→21:32)
[2018-10-15] MEDS: LISINOPRIL 5 MG TAB PO (08:06)
[2018-10-15] MEDS: DIGOXIN 0.125 MG TAB PO (12:07)
[2018-10-15] MEDS: INSULIN GLARGINE [LANTus] (100 UNITS/ML) SYG SC (22:00)
[2018-10-16] MEDS: VANCOMYCIN HCL 1.25 GM in SOD CHLORIDE 0.9% 250 ML IVPB ×2 (01:53→14:10)
[2018-10-16] MEDS: HYDROmorphONE 1 MG/ML SYG IV ×6 (01:55→22:12)
[2018-10-16] MEDS: ACCU-CHEK XX ×5 (01:58→20:58)
[2018-10-16] MEDS: FUROSEMIDE 20 MG INJ IV ×2 (06:00→17:10)
[2018-10-16] MEDS: PANTOPRAZOLE (EC) 40 MG TAB PO (06:03)
[2018-10-16] MEDS: metroNIDAZOLE 500 MG/NS (PMX) 100 ML IVPB ×3 (06:03→23:00)
[2018-10-16] MEDS: INSULIN ASPART [NOVOLOG] 3 ML PEN SC ×4 (07:55→20:58)
[2018-10-16] MEDS: CEFEPIME 2GM/50 ML (PMX) 50 ML IVPB ×2 (08:20→21:37)
[2018-10-16] MEDS: AMIODARONE 200 MG TAB PO (08:21)
[2018-10-16] MEDS: oxyCODONE (CR) 10 MG TAB [oxyCONTIN] PO ×2 (08:21→21:08)
[2018-10-16] MEDS: EMPAGLIFLOZIN 10 MG TABLET PO (08:22)
[2018-10-16] MEDS: LISINOPRIL 5 MG TAB PO (08:22)
[2018-10-16] MEDS: GABAPENTIN 300 MG CAP PO (08:22)
[2018-10-16] MEDS: LINAGLIPTIN 5 MG TABLET PO (08:22)
[2018-10-16] MEDS: CYANOCOBALAMIN 1000 MCG INJ IM (08:23)
[2018-10-16] MEDS: NEOMYC/POLYMYX/BACIT 30 GM OINT TOP (08:23)
[2018-10-16] MEDS: DIGOXIN 0.125 MG TAB PO (12:30)
[2018-10-16] MEDS: SENNA TAB PO (14:26)
[2018-10-16] MEDS: DOCUSATE SODIUM 100 MG CAP PO ×2 (14:26→20:25)
[2018-10-16] MEDS: INSULIN GLARGINE [LANTus] (100 UNITS/ML) SYG SC (20:35)
[2018-10-17] MEDS: VANCOMYCIN HCL 1.25 GM in SOD CHLORIDE 0.9% 250 ML IVPB ×2 (01:40→13:25)
[2018-10-17] MEDS: ACCU-CHEK XX ×5 (02:00→21:12)
[2018-10-17] MEDS: HYDROmorphONE 1 MG/ML SYG IV ×5 (02:50→21:25)
[2018-10-17] MEDS: metroNIDAZOLE 500 MG/NS (PMX) 100 ML IVPB ×3 (06:00→21:30)
[2018-10-17] MEDS: PANTOPRAZOLE (EC) 40 MG TAB PO (06:00)
[2018-10-17] MEDS: FUROSEMIDE 20 MG INJ IV ×2 (06:00→17:07)
[2018-10-17 06:07] LABS: ADD MAN DIFF? NO
[2018-10-17 06:16] LABS: BASOPHILS % 0.3 % (0.0-2.0); EOSINOPHILS # 0.4 10^3/ul (0.0-0.5); EOSINOPHILS % 5.5 % (0.0-7.0); HEMATOCRIT 33.3 % (42.0-52.0); HEMOGLOBIN 10.3 g/dl (14.0-18.0); LYMPHOCYTES # 1.8 10^3/ul (0.8-2.9); MEAN CORPUSCULAR HEMOGLOBIN 28.6 pg (29.0-33.0); MEAN CORPUSCULAR HGB CONC 30.9 g/dl (32.0-37.0); MEAN CORPUSCULAR VOLUME 92.5 fl (82.0-101.0); MEAN PLATELET VOLUME 11.2 fl (7.4-10.4); MONOCYTE # 0.8 10^3/ul (0.3-0.9); MONOCYTES % 10.9 % (0.0-11.0); PLATELET COUNT 226 10^3/UL (140-415); RED CELL DISTRIBUTION WIDTH 15.7 % (11.5-14.5)
[2018-10-17 06:48] LABS: ALANINE AMINOTRANSFERASE 37 IU/L (13-69); ALBUMIN 3.5 g/dl (3.3-4.9); ALBUMIN/GLOBULIN RATIO 1.29; ALKALINE PHOSPHATASE 46 IU/L (42-121); ANION GAP 6 (5-13); ASPARTATE AMINO TRANSFERASE 28 IU/L (15-46); BILIRUBIN,INDIRECT 0.3 mg/dl (0-1.1); BILIRUBIN,TOTAL 0.3 mg/dl (0.2-1.3); BLOOD UREA NITROGEN 15 mg/dl (7-20); CALCIUM 8.9 mg/dl (8.4-10.2); CARBON DIOXIDE 30 mmol/L (21-31); CHLORIDE 104 mmol/L (97-110); Estimated GFR > 60 mL/min (>60); GLUCOSE 163 mg/dl (70-220); POTASSIUM 4.1 mmol/L (3.5-5.1); SODIUM 140 mmol/L (135-144); TOTAL PROTEIN 6.2 g/dl (6.1-8.1)
[2018-10-17] MEDS: INSULIN ASPART [NOVOLOG] 3 ML PEN SC ×4 (07:55→21:09)
[2018-10-17] MEDS: GABAPENTIN 300 MG CAP PO (08:16)
[2018-10-17] MEDS: DOCUSATE SODIUM 100 MG CAP PO ×2 (08:17→20:19)
[2018-10-17] MEDS: CYANOCOBALAMIN 1000 MCG INJ IM (08:17)
[2018-10-17] MEDS: EMPAGLIFLOZIN 10 MG TABLET PO (08:18)
[2018-10-17] MEDS: LISINOPRIL 5 MG TAB PO (08:18)
[2018-10-17] MEDS: LINAGLIPTIN 5 MG TABLET PO (08:18)
[2018-10-17] MEDS: AMIODARONE 200 MG TAB PO (08:19)
[2018-10-17] MEDS: oxyCODONE (CR) 10 MG TAB [oxyCONTIN] PO ×2 (08:22→20:19)
[2018-10-17] MEDS: NEOMYC/POLYMYX/BACIT 30 GM OINT TOP (08:23)
[2018-10-17] MEDS: CEFEPIME 2GM/50 ML (PMX) 50 ML IVPB ×2 (09:30→20:19)
[2018-10-17] MEDS: DIGOXIN 0.125 MG TAB PO (12:01)
[2018-10-17] MEDS: INSULIN GLARGINE [LANTus] (100 UNITS/ML) SYG SC (21:10)
[2018-10-18] MEDS: VANCOMYCIN HCL 1.25 GM in SOD CHLORIDE 0.9% 250 ML IVPB ×2 (01:22→12:08)
[2018-10-18] MEDS: HYDROmorphONE 1 MG/ML SYG IV ×6 (01:27→22:03)
[2018-10-18] MEDS: ACCU-CHEK XX ×5 (02:00→21:26)
[2018-10-18] MEDS: PANTOPRAZOLE (EC) 40 MG TAB PO (05:22)
[2018-10-18] MEDS: metroNIDAZOLE 500 MG/NS (PMX) 100 ML IVPB ×3 (05:22→21:59)
[2018-10-18] MEDS: FUROSEMIDE 20 MG INJ IV ×2 (05:23→17:25)
[2018-10-18] MEDS: INSULIN ASPART [NOVOLOG] 3 ML PEN SC ×4 (07:55→21:00)
[2018-10-18] MEDS: oxyCODONE (CR) 10 MG TAB [oxyCONTIN] PO ×2 (08:16→21:26)
[2018-10-18] MEDS: GABAPENTIN 300 MG CAP PO (08:17)
[2018-10-18] MEDS: AMIODARONE 200 MG TAB PO (08:19)
[2018-10-18] MEDS: LISINOPRIL 5 MG TAB PO (08:19)
[2018-10-18] MEDS: LINAGLIPTIN 5 MG TABLET PO (08:20)
[2018-10-18] MEDS: DOCUSATE SODIUM 100 MG CAP PO ×2 (08:21→21:17)
[2018-10-18] MEDS: CEFEPIME 2GM/50 ML (PMX) 50 ML IVPB ×2 (08:21→21:12)
[2018-10-18] MEDS: EMPAGLIFLOZIN 10 MG TABLET PO (08:21)
[2018-10-18] MEDS: NEOMYC/POLYMYX/BACIT 30 GM OINT TOP (08:23)
[2018-10-18] MEDS: CYANOCOBALAMIN 1000 MCG INJ IM (08:23)
[2018-10-18] MEDS: DIGOXIN 0.125 MG TAB PO (12:16)
[2018-10-18] MEDS: DAKINS 0.0125%(1/40) 473 ML SOLUTION TP (14:08)
[2018-10-18] MEDS: INSULIN GLARGINE [LANTus] (100 UNITS/ML) SYG SC (21:32)
[2018-10-18] MEDS: (Nursing Note) XX (22:00)
[2018-10-19] MEDS: VANCOMYCIN HCL 1.25 GM in SOD CHLORIDE 0.9% 250 ML IVPB ×2 (01:39→13:44)
[2018-10-19] MEDS: ACCU-CHEK XX ×4 (01:51→17:44)
[2018-10-19] MEDS: HYDROmorphONE 1 MG/ML SYG IV ×6 (01:53→21:59)
[2018-10-19] MEDS: FUROSEMIDE 20 MG INJ IV ×2 (06:00→18:07)
[2018-10-19] MEDS: metroNIDAZOLE 500 MG/NS (PMX) 100 ML IVPB ×3 (06:03→21:59)
[2018-10-19] MEDS: PANTOPRAZOLE (EC) 40 MG TAB PO (06:03)
[2018-10-19] MEDS: INSULIN ASPART [NOVOLOG] 3 ML PEN SC ×4 (07:48→21:00)
[2018-10-19] MEDS: LISINOPRIL 5 MG TAB PO (09:00)
[2018-10-19] MEDS: (Nursing Note) XX ×2 (09:00→21:00)
[2018-10-19] MEDS: AMIODARONE 200 MG TAB PO (09:00)
[2018-10-19] MEDS: EMPAGLIFLOZIN 10 MG TABLET PO (09:20)
[2018-10-19] MEDS: DOCUSATE SODIUM 100 MG CAP PO ×2 (09:20→21:15)
[2018-10-19] MEDS: GABAPENTIN 300 MG CAP PO (09:20)
[2018-10-19] MEDS: LINAGLIPTIN 5 MG TABLET PO (09:20)
[2018-10-19] MEDS: CYANOCOBALAMIN 1000 MCG INJ IM (09:21)
[2018-10-19] MEDS: CEFEPIME 2GM/50 ML (PMX) 50 ML IVPB ×2 (09:42→21:10)
[2018-10-19] MEDS: oxyCODONE (CR) 10 MG TAB [oxyCONTIN] PO ×2 (09:42→21:15)
[2018-10-19] MEDS: DAKINS 0.0125%(1/40) 473 ML SOLUTION TP (09:44)
[2018-10-19] MEDS: NEOMYC/POLYMYX/BACIT 30 GM OINT TOP (10:01)
[2018-10-19 12:49] LABS: VANCOMYCIN,TROUGH 13.3 ug/ml (10.0-20.0)
[2018-10-19] MEDS: DIGOXIN 0.125 MG TAB PO (13:44)
[2018-10-19] MEDS: INSULIN GLARGINE [LANTus] (100 UNITS/ML) SYG SC (21:25)
[2018-10-19] MEDS ORDERED: ACETAMINOPHEN 325 MG TAB PO (22:00)
[2018-10-20] MEDS: HYDROmorphONE 1 MG/ML SYG IV ×5 (01:54→20:51)
[2018-10-20] MEDS: VANCOMYCIN HCL 1.25 GM in SOD CHLORIDE 0.9% 250 ML IVPB ×2 (01:54→13:08)
[2018-10-20] MEDS: ACCU-CHEK XX (02:01)
[2018-10-20] MEDS: FUROSEMIDE 20 MG INJ IV ×2 (06:00→17:42)
[2018-10-20] MEDS: PANTOPRAZOLE (EC) 40 MG TAB PO (06:07)
[2018-10-20] MEDS: metroNIDAZOLE 500 MG/NS (PMX) 100 ML IVPB ×3 (06:07→22:50)
[2018-10-20] MEDS: INSULIN ASPART [NOVOLOG] 3 ML PEN SC ×4 (07:42→21:00)
[2018-10-20] MEDS: EMPAGLIFLOZIN 10 MG TABLET PO (07:43)
[2018-10-20] MEDS: LINAGLIPTIN 5 MG TABLET PO (07:43)
[2018-10-20] MEDS: GABAPENTIN 300 MG CAP PO (08:57)
[2018-10-20] MEDS: CYANOCOBALAMIN 1000 MCG INJ IM (08:57)
[2018-10-20] MEDS: CEFEPIME 2GM/50 ML (PMX) 50 ML IVPB ×2 (08:59→21:41)
[2018-10-20] MEDS: DOCUSATE SODIUM 100 MG CAP PO ×2 (08:59→20:54)
[2018-10-20] MEDS: (Nursing Note) XX ×2 (09:00→21:00)
[2018-10-20] MEDS: LISINOPRIL 5 MG TAB PO (09:00)
[2018-10-20] MEDS: AMIODARONE 200 MG TAB PO (09:00)
[2018-10-20] MEDS: DAKINS 0.0125%(1/40) 473 ML SOLUTION TP (09:02)
[2018-10-20] MEDS: NEOMYC/POLYMYX/BACIT 30 GM OINT TOP (09:02)
[2018-10-20] MEDS: oxyCODONE (CR) 10 MG TAB [oxyCONTIN] PO ×2 (09:09→20:54)
[2018-10-20] MEDS: DIGOXIN 0.125 MG TAB PO (13:08)
[2018-10-20] MEDS: INSULIN GLARGINE [LANTus] (100 UNITS/ML) SYG SC (21:19)
[2018-10-21] MEDS: HYDROmorphONE 1 MG/ML SYG IV ×6 (00:55→21:59)
[2018-10-21] MEDS: VANCOMYCIN HCL 1.25 GM in SOD CHLORIDE 0.9% 250 ML IVPB ×2 (00:56→12:31)
[2018-10-21] MEDS: ACCU-CHEK XX (02:42)
[2018-10-21] MEDS: metroNIDAZOLE 500 MG/NS (PMX) 100 ML IVPB ×3 (05:10→21:58)
[2018-10-21] MEDS: PANTOPRAZOLE (EC) 40 MG TAB PO (05:10)
[2018-10-21] MEDS: FUROSEMIDE 20 MG INJ IV (06:00)
[2018-10-21 07:08] LABS: BLOOD UREA NITROGEN 18 mg/dl (7-20)
[2018-10-21] MEDS: INSULIN ASPART [NOVOLOG] 3 ML PEN SC ×4 (07:53→21:00)
[2018-10-21] MEDS: LINAGLIPTIN 5 MG TABLET PO (07:54)
[2018-10-21] MEDS: EMPAGLIFLOZIN 10 MG TABLET PO (07:54)
[2018-10-21] MEDS: GABAPENTIN 300 MG CAP PO (08:46)
[2018-10-21] MEDS: DOCUSATE SODIUM 100 MG CAP PO ×2 (08:46→21:06)
[2018-10-21] MEDS: CYANOCOBALAMIN 1000 MCG INJ IM (08:46)
[2018-10-21] MEDS: LISINOPRIL 5 MG TAB PO (08:47)
[2018-10-21] MEDS: AMIODARONE 200 MG TAB PO (08:48)
[2018-10-21] MEDS: (Nursing Note) XX (09:00)
[2018-10-21] MEDS: oxyCODONE (CR) 10 MG TAB [oxyCONTIN] PO ×2 (10:12→21:10)
[2018-10-21] MEDS: DAKINS 0.0125%(1/40) 473 ML SOLUTION TP (10:12)
[2018-10-21] MEDS: CEFEPIME 2GM/50 ML (PMX) 50 ML IVPB ×2 (10:12→21:06)
[2018-10-21] MEDS: NEOMYC/POLYMYX/BACIT 30 GM OINT TOP (10:13)
[2018-10-21] MEDS: DIGOXIN 0.125 MG TAB PO (12:31)
[2018-10-21] MEDS: INSULIN GLARGINE [LANTus] (100 UNITS/ML) SYG SC (21:17)
[2018-10-22] MEDS: VANCOMYCIN HCL 1.25 GM in SOD CHLORIDE 0.9% 250 ML IVPB ×2 (00:58→14:29)
[2018-10-22] MEDS: ACCU-CHEK XX (02:00)
[2018-10-22] MEDS: HYDROmorphONE 1 MG/ML SYG IV ×4 (02:04→17:38)
[2018-10-22] MEDS: metroNIDAZOLE 500 MG/NS (PMX) 100 ML IVPB ×3 (05:56→21:11)
[2018-10-22] MEDS: PANTOPRAZOLE (EC) 40 MG TAB PO (05:56)
[2018-10-22 07:19] LABS: ADD MAN DIFF? NO
[2018-10-22 07:29] LABS: WHITE BLOOD COUNT 6.8 10^3/ul (4.8-10.8)
[2018-10-22 07:29] LABS: BASOPHILS % 0.6 % (0.0-2.0); EOSINOPHILS # 0.3 10^3/ul (0.0-0.5); EOSINOPHILS % 4.6 % (0.0-7.0); HEMATOCRIT 37.1 % (42.0-52.0); HEMOGLOBIN 11.5 g/dl (14.0-18.0); LYMPHOCYTES # 1.7 10^3/ul (0.8-2.9); LYMPHOCYTES % 24.7 % (15.0-51.0); MEAN CORPUSCULAR HEMOGLOBIN 28.3 pg (29.0-33.0); MEAN CORPUSCULAR VOLUME 91.2 fl (82.0-101.0); MEAN PLATELET VOLUME 10.9 fl (7.4-10.4); MONOCYTE # 0.9 10^3/ul (0.3-0.9); MONOCYTES % 13.2 % (0.0-11.0); NEUTROPHIL # 3.8 10^3/ul (1.6-7.5); NEUTROPHILS % 56.8 % (39.0-77.0); PLATELET COUNT 256 10^3/UL (140-415); RED BLOOD COUNT 4.07 10^6/ul (4.70-6.10); RED CELL DISTRIBUTION WIDTH 15.3 % (11.5-14.5)
[2018-10-22 07:30] LABS: PLATELET COUNT 252 10^3/UL (140-415)
[2018-10-22 07:44] LABS: ANION GAP 5 (5-13); BLOOD UREA NITROGEN 15 mg/dl (7-20); CALCIUM 9.1 mg/dl (8.4-10.2); CARBON DIOXIDE 30 mmol/L (21-31); CHLORIDE 104 mmol/L (97-110); CREATININE 0.61 mg/dl (0.61-1.24); Estimated GFR > 60 mL/min (>60); GLUCOSE 119 mg/dl (70-220); POTASSIUM 4.2 mmol/L (3.5-5.1); SODIUM 139 mmol/L (135-144)
[2018-10-22 07:50] LABS: PARTIAL THROMBOPLASTIN TIME 29.2 Sec (23.0-35.0); PROTIME 13.3 Sec (11.9-14.9); THROMBIN TIME 16.4 SEC (13.8-19.1)
[2018-10-22] MEDS: INSULIN ASPART [NOVOLOG] 3 ML PEN SC ×4 (07:55→21:00)
[2018-10-22] MEDS ORDERED: MIDAZOLAM 1 MG/ML 2 ML INJ (08:12)
[2018-10-22] MEDS: HEPARIN 1000 UNITS/ML 10 ML INJ (08:28)
[2018-10-22] MEDS ORDERED: PHENYLephrine 10 MG INJ ×2 (08:52→10:56)
[2018-10-22] MEDS: FUROSEMIDE 20 MG TAB PO (09:00)
[2018-10-22] MEDS: DAKINS 0.0125%(1/40) 473 ML SOLUTION TP (09:00)
[2018-10-22] MEDS: LISINOPRIL 5 MG TAB PO (09:00)
[2018-10-22] MEDS: NEOMYC/POLYMYX/BACIT 30 GM OINT TOP (09:00)
[2018-10-22] MEDS: CEFEPIME 2GM/50 ML (PMX) 50 ML IVPB ×2 (09:00→21:09)
[2018-10-22] MEDS: GABAPENTIN 300 MG CAP PO (09:00)
[2018-10-22] MEDS: CYANOCOBALAMIN 1000 MCG INJ IM (09:00)
[2018-10-22] MEDS: CYCLOBENZAPRINE 10 MG TAB PO ×2 (09:00→21:11)
[2018-10-22] MEDS: EMPAGLIFLOZIN 10 MG TABLET PO (09:00)
[2018-10-22] MEDS: LINAGLIPTIN 5 MG TABLET PO (09:00)
[2018-10-22] MEDS: AMIODARONE 200 MG TAB PO (09:00)
[2018-10-22] MEDS: oxyCODONE (CR) 10 MG TAB [oxyCONTIN] PO (09:00)
[2018-10-22] MEDS: DOCUSATE SODIUM 100 MG CAP PO ×2 (09:00→21:11)
[2018-10-22] MEDS ORDERED: GELATIN SIZE 100 SPONGE (09:33)
[2018-10-22] MEDS ORDERED: HEPARIN 1000 UNITS/ML 10 ML INJ ×2 (09:33→10:51)
[2018-10-22] MEDS ORDERED: THROMBIN 5000 UNIT VIAL (09:33)
[2018-10-22] MEDS: THROMBIN (BOVINE) 5,000 UNIT VIAL TP (11:29)
[2018-10-22] MEDS: GELATIN SIZE 100 SPONGE (11:29)
[2018-10-22] MEDS ORDERED: CEFAZOLIN 1 GM INJ (12:00)
[2018-10-22] MEDS ORDERED: LIDOCAINE 2% (SDV) 5 ML INJ (12:00)
[2018-10-22] MEDS ORDERED: ETOMIDATE 20 MG INJ (12:00)
[2018-10-22] MEDS ORDERED: ROCURONIUM 50 MG INJ (12:00)
[2018-10-22] MEDS ORDERED: ONDANSETRON 4 MG INJ (12:02)
[2018-10-22] MEDS ORDERED: DIPHENHYDRAMINE 50 MG INJ IV (13:00)
[2018-10-22] MEDS ORDERED: LABETALOL HCL 20MG INJ IV (13:00)
[2018-10-22] MEDS ORDERED: MEPERIDINE 25 MG INJ IV (13:00)
[2018-10-22] MEDS ORDERED: HYDROmorphONE 1 MG/5 ML IV SYRINGE IV ×2 (13:00)
[2018-10-22] MEDS ORDERED: hydrALAzine 20 MG INJ IV (13:00)
[2018-10-22] MEDS: morphine 2 MG INJ IV ×2 (13:45→15:52)
[2018-10-22] MEDS: DIGOXIN 0.125 MG TAB PO (14:19)
[2018-10-22] MEDS: HEPARIN 25000 UNITS/250 ML 250 ML IV (14:21)
[2018-10-22] MEDS: HYDROmorphONE 2 MG/ML SYG IV ×2 (18:35→21:07)
[2018-10-22] MEDS: INSULIN GLARGINE [LANTus] (100 UNITS/ML) SYG SC (21:18)
[2018-10-23] MEDS: HYDROmorphONE 2 MG/ML SYG IV ×8 (00:04→22:05)
[2018-10-23] MEDS: VANCOMYCIN HCL 1.25 GM in SOD CHLORIDE 0.9% 250 ML IVPB ×2 (01:01→12:59)
[2018-10-23] MEDS: ACCU-CHEK XX (02:00)
[2018-10-23] MEDS: metroNIDAZOLE 500 MG/NS (PMX) 100 ML IVPB ×3 (06:20→21:55)
[2018-10-23] MEDS: PANTOPRAZOLE (EC) 40 MG TAB PO (06:20)
[2018-10-23] MEDS: INSULIN ASPART [NOVOLOG] 3 ML PEN SC ×4 (07:35→21:00)
[2018-10-23] MEDS: GABAPENTIN 300 MG CAP PO (09:04)
[2018-10-23] MEDS: CEFEPIME 2GM/50 ML (PMX) 50 ML IVPB ×2 (09:04→21:55)
[2018-10-23] MEDS: FUROSEMIDE 20 MG TAB PO (09:05)
[2018-10-23] MEDS: DOCUSATE SODIUM 100 MG CAP PO ×2 (09:06→21:55)
[2018-10-23] MEDS: AMIODARONE 200 MG TAB PO (09:06)
[2018-10-23] MEDS: CYCLOBENZAPRINE 10 MG TAB PO ×2 (09:07→21:54)
[2018-10-23] MEDS: CYANOCOBALAMIN 1000 MCG INJ IM (09:07)
[2018-10-23] MEDS: EMPAGLIFLOZIN 10 MG TABLET PO (09:32)
[2018-10-23] MEDS: LINAGLIPTIN 5 MG TABLET PO (09:39)
[2018-10-23] MEDS: LISINOPRIL 5 MG TAB PO (09:40)
[2018-10-23] MEDS: NEOMYC/POLYMYX/BACIT 30 GM OINT TOP (11:45)
[2018-10-23] MEDS: DAKINS 0.0125%(1/40) 473 ML SOLUTION TP ×2 (11:45→13:54)
[2018-10-23] MEDS: APIXABAN 5 MG TABLET PO ×2 (12:52→21:55)
[2018-10-23] MEDS: DIGOXIN 0.125 MG TAB PO (13:09)
[2018-10-23] MEDS: INSULIN GLARGINE [LANTus] (100 UNITS/ML) SYG SC (22:03)
[2018-10-24] MEDS: VANCOMYCIN HCL 1.25 GM in SOD CHLORIDE 0.9% 250 ML IVPB ×2 (00:56→13:26)
[2018-10-24] MEDS: HYDROmorphONE 2 MG/ML SYG IV ×8 (00:56→23:30)
[2018-10-24] MEDS: ACCU-CHEK XX (01:22)
[2018-10-24] MEDS ORDERED: PENDING SANTYL ORDER FOR WOUND CARE XX (04:30)
[2018-10-24] MEDS: MAGNESIUM HYDROXIDE 30ML CUP PO ×2 (05:03→20:20)
[2018-10-24] MEDS: metroNIDAZOLE 500 MG/NS (PMX) 100 ML IVPB ×3 (05:03→21:01)
[2018-10-24] MEDS: PANTOPRAZOLE (EC) 40 MG TAB PO ×2 (05:03→10:08)
[2018-10-24 08:24] LABS: ADD MAN DIFF? NO
[2018-10-24 08:25] LABS: WHITE BLOOD COUNT 10.6 10^3/ul (4.8-10.8)
[2018-10-24 08:25] LABS: BASOPHILS % 0.3 % (0.0-2.0); EOSINOPHILS # 0.2 10^3/ul (0.0-0.5); EOSINOPHILS % 1.8 % (0.0-7.0); HEMATOCRIT 34.1 % (42.0-52.0); HEMOGLOBIN 10.4 g/dl (14.0-18.0); LYMPHOCYTES # 1.8 10^3/ul (0.8-2.9); LYMPHOCYTES % 16.9 % (15.0-51.0); MEAN CORPUSCULAR HEMOGLOBIN 27.8 pg (29.0-33.0); MEAN CORPUSCULAR HGB CONC 30.5 g/dl (32.0-37.0); MEAN CORPUSCULAR VOLUME 91.2 fl (82.0-101.0); MEAN PLATELET VOLUME 10.7 fl (7.4-10.4); MONOCYTE # 1.5 10^3/ul (0.3-0.9); MONOCYTES % 14.2 % (0.0-11.0); NEUTROPHILS % 66.3 % (39.0-77.0); PLATELET COUNT 250 10^3/UL (140-415); RED BLOOD COUNT 3.74 10^6/ul (4.70-6.10); RED CELL DISTRIBUTION WIDTH 15.5 % (11.5-14.5)
[2018-10-24 08:57] LABS: ANION GAP 5 (5-13); BLOOD UREA NITROGEN 11 mg/dl (7-20); CALCIUM 8.7 mg/dl (8.4-10.2); CARBON DIOXIDE 28 mmol/L (21-31); CHLORIDE 104 mmol/L (97-110); CREATININE 0.61 mg/dl (0.61-1.24); Estimated GFR > 60 mL/min (>60); GLUCOSE 111 mg/dl (70-220); POTASSIUM 4.2 mmol/L (3.5-5.1); SODIUM 137 mmol/L (135-144)
[2018-10-24] MEDS: LISINOPRIL 5 MG TAB PO (09:00)
[2018-10-24] MEDS: INSULIN ASPART [NOVOLOG] 3 ML PEN SC ×4 (10:03→20:43)
[2018-10-24] MEDS: LINAGLIPTIN 5 MG TABLET PO (10:07)
[2018-10-24] MEDS: FUROSEMIDE 20 MG TAB PO (10:08)
[2018-10-24] MEDS: AMIODARONE 200 MG TAB PO (10:09)
[2018-10-24] MEDS: APIXABAN 5 MG TABLET PO ×2 (10:09→20:21)
[2018-10-24] MEDS: CYCLOBENZAPRINE 10 MG TAB PO ×2 (10:10→20:21)
[2018-10-24] MEDS: GABAPENTIN 300 MG CAP PO (10:12)
[2018-10-24] MEDS: EMPAGLIFLOZIN 10 MG TABLET PO (10:12)
[2018-10-24] MEDS: DOCUSATE SODIUM 100 MG CAP PO ×2 (10:35→20:21)
[2018-10-24] MEDS: NEOMYC/POLYMYX/BACIT 30 GM OINT TOP (10:35)
[2018-10-24] MEDS: SENNA TAB PO ×2 (10:35→20:20)
[2018-10-24] MEDS: DAKINS 0.0125%(1/40) 473 ML SOLUTION TP (10:36)
[2018-10-24 12:49] LABS: VANCOMYCIN,TROUGH 9.8 ug/ml (10.0-20.0)
[2018-10-24] MEDS: CYANOCOBALAMIN 1000 MCG INJ IM (13:23)
[2018-10-24] MEDS: CEFEPIME 2GM/50 ML (PMX) 50 ML IVPB ×2 (13:24→20:25)
[2018-10-24 13:28] LABS: ERYTHROCYTE SEDIMENTATION RATE 50 mm/Hr (0-20)
[2018-10-24] MEDS: DIGOXIN 0.125 MG TAB PO (17:22)
[2018-10-24] MEDS: INSULIN GLARGINE [LANTus] (100 UNITS/ML) SYG SC (20:43)
[2018-10-24] MEDS ORDERED: ALTEPLASE (CATHFLO) 2 MG INJ CATHETER (21:00)
[2018-10-25] MEDS: VANCOMYCIN HCL 1.5 GM in SOD CHLORIDE 0.9% 250 ML IVPB ×2 (00:33→13:13)
[2018-10-25] MEDS: ACCU-CHEK XX (02:00)
[2018-10-25] MEDS: HYDROmorphONE 2 MG/ML SYG IV ×7 (03:42→23:34)
[2018-10-25] MEDS: ALTEPLASE (CATHFLO) 2 MG INJ CATHETER ×2 (03:49)
[2018-10-25] MEDS ORDERED: ALTEPLASE (CATHFLO) 2 MG INJ CATHETER (04:00)
[2018-10-25] MEDS: metroNIDAZOLE 500 MG/NS (PMX) 100 ML IVPB ×3 (05:36→22:33)
[2018-10-25 06:07] LABS: ADD MAN DIFF? NO
[2018-10-25 06:23] LABS: WHITE BLOOD COUNT 9.9 10^3/ul (4.8-10.8)
[2018-10-25 06:23] LABS: BASOPHILS % 0.2 % (0.0-2.0); EOSINOPHILS # 0.2 10^3/ul (0.0-0.5); EOSINOPHILS % 2.3 % (0.0-7.0); HEMATOCRIT 32.4 % (42.0-52.0); HEMOGLOBIN 10.1 g/dl (14.0-18.0); LYMPHOCYTES # 1.6 10^3/ul (0.8-2.9); MEAN CORPUSCULAR HEMOGLOBIN 28.5 pg (29.0-33.0); MEAN CORPUSCULAR HGB CONC 31.2 g/dl (32.0-37.0); MEAN CORPUSCULAR VOLUME 91.3 fl (82.0-101.0); MEAN PLATELET VOLUME 11.4 fl (7.4-10.4); MONOCYTE # 1.1 10^3/ul (0.3-0.9); MONOCYTES % 11.3 % (0.0-11.0); NEUTROPHIL # 6.9 10^3/ul (1.6-7.5); NEUTROPHILS % 69.9 % (39.0-77.0); PLATELET COUNT 216 10^3/UL (140-415); RED BLOOD COUNT 3.55 10^6/ul (4.70-6.10); RED CELL DISTRIBUTION WIDTH 15.3 % (11.5-14.5)
[2018-10-25] MEDS: [UNRECOGNIZED DRUG - OTHER] XX ×2 (06:30→22:30)
[2018-10-25 07:03] LABS: ANION GAP 4 (5-13); BLOOD UREA NITROGEN 12 mg/dl (7-20); CALCIUM 8.3 mg/dl (8.4-10.2); CARBON DIOXIDE 27 mmol/L (21-31); CHLORIDE 105 mmol/L (97-110); CREATININE 0.47 mg/dl (0.61-1.24); Estimated GFR > 60 mL/min (>60); GLUCOSE 99 mg/dl (70-220); POTASSIUM 4.1 mmol/L (3.5-5.1); SODIUM 136 mmol/L (135-144)
[2018-10-25] MEDS: INSULIN ASPART [NOVOLOG] 3 ML PEN SC ×4 (08:00→21:00)
[2018-10-25] MEDS ORDERED: [UNRECOGNIZED DRUG - OTHER] XX (09:00)
[2018-10-25] MEDS: CEFEPIME 2GM/50 ML (PMX) 50 ML IVPB ×2 (09:20→20:43)
[2018-10-25] MEDS: AMIODARONE 200 MG TAB PO (09:21)
[2018-10-25] MEDS: DOCUSATE SODIUM 100 MG CAP PO ×2 (09:22→20:44)
[2018-10-25] MEDS: LISINOPRIL 5 MG TAB PO (09:22)
[2018-10-25] MEDS: FUROSEMIDE 20 MG TAB PO (09:22)
[2018-10-25] MEDS: LINAGLIPTIN 5 MG TABLET PO (09:23)
[2018-10-25] MEDS: GABAPENTIN 300 MG CAP PO (09:23)
[2018-10-25] MEDS: APIXABAN 5 MG TABLET PO ×2 (09:23→20:44)
[2018-10-25] MEDS: CYCLOBENZAPRINE 10 MG TAB PO ×2 (09:24→20:45)
[2018-10-25] MEDS: EMPAGLIFLOZIN 10 MG TABLET PO (09:24)
[2018-10-25] MEDS: DAKINS 0.0125%(1/40) 473 ML SOLUTION TP (09:27)
[2018-10-25] MEDS: NEOMYC/POLYMYX/BACIT 30 GM OINT TOP (09:28)
[2018-10-25] MEDS: CYANOCOBALAMIN 1000 MCG INJ IM (11:34)
[2018-10-25] MEDS: DIGOXIN 0.125 MG TAB PO (13:13)
[2018-10-25] MEDS ORDERED: LACTATED RINGER'S 1,000 ML IV (16:07)
[2018-10-25] MEDS: INSULIN GLARGINE [LANTus] (100 UNITS/ML) SYG SC (22:38)
[2018-10-26] MEDS: VANCOMYCIN HCL 1.5 GM in SOD CHLORIDE 0.9% 250 ML IVPB ×2 (01:32→11:54)
[2018-10-26] MEDS: ACCU-CHEK XX (02:35)
[2018-10-26] MEDS: HYDROmorphONE 2 MG/ML SYG IV ×6 (02:35→21:52)
[2018-10-26] MEDS: PANTOPRAZOLE (EC) 40 MG TAB PO (06:27)
[2018-10-26] MEDS: metroNIDAZOLE 500 MG/NS (PMX) 100 ML IVPB ×3 (06:27→22:33)
[2018-10-26] MEDS: INSULIN ASPART [NOVOLOG] 3 ML PEN SC ×4 (08:00→22:03)
[2018-10-26] MEDS: NEOMYC/POLYMYX/BACIT 30 GM OINT TOP (09:00)
[2018-10-26] MEDS: GABAPENTIN 300 MG CAP PO (09:56)
[2018-10-26] MEDS: CYCLOBENZAPRINE 10 MG TAB PO ×2 (09:56→21:52)
[2018-10-26] MEDS: FUROSEMIDE 20 MG TAB PO (09:58)
[2018-10-26] MEDS: LINAGLIPTIN 5 MG TABLET PO (09:58)
[2018-10-26] MEDS: EMPAGLIFLOZIN 10 MG TABLET PO (10:01)
[2018-10-26] MEDS: LISINOPRIL 5 MG TAB PO (10:01)
[2018-10-26] MEDS: APIXABAN 5 MG TABLET PO ×2 (10:02→21:52)
[2018-10-26] MEDS: AMIODARONE 200 MG TAB PO (10:02)
[2018-10-26] MEDS: CYANOCOBALAMIN 1000 MCG INJ IM (10:03)
[2018-10-26] MEDS: DOCUSATE SODIUM 100 MG CAP PO ×2 (10:03→21:52)
[2018-10-26] MEDS: CEFEPIME 2GM/50 ML (PMX) 50 ML IVPB ×2 (10:09→21:54)
[2018-10-26 12:56] LABS: VANCOMYCIN,TROUGH 13.4 ug/ml (10.0-20.0)
[2018-10-26] MEDS: DIGOXIN 0.125 MG TAB PO (15:57)
[2018-10-26] MEDS: DAKINS 0.0125%(1/40) 473 ML SOLUTION TP (15:57)
[2018-10-26] MEDS: INSULIN GLARGINE [LANTus] (100 UNITS/ML) SYG SC (22:10)
[2018-10-26] MEDS: [UNRECOGNIZED DRUG - OTHER] XX (22:30)
[2018-10-27] MEDS: HYDROmorphONE 2 MG/ML SYG IV ×7 (00:59→23:45)
[2018-10-27] MEDS: VANCOMYCIN HCL 1.5 GM in SOD CHLORIDE 0.9% 250 ML IVPB ×2 (01:18→17:29)
[2018-10-27] MEDS: ACCU-CHEK XX (02:00)
[2018-10-27] MEDS: metroNIDAZOLE 500 MG/NS (PMX) 100 ML IVPB ×3 (05:56→21:40)
[2018-10-27] MEDS: [UNRECOGNIZED DRUG - OTHER] XX ×3 (06:30→22:30)
[2018-10-27] MEDS: INSULIN ASPART [NOVOLOG] 3 ML PEN SC ×4 (08:00→21:00)
[2018-10-27] MEDS: CYANOCOBALAMIN 1000 MCG INJ IM (08:03)
[2018-10-27] MEDS: AMIODARONE 200 MG TAB PO (08:13)
[2018-10-27] MEDS: FUROSEMIDE 20 MG TAB PO (08:14)
[2018-10-27] MEDS: APIXABAN 5 MG TABLET PO ×2 (08:14→20:36)
[2018-10-27] MEDS: CYCLOBENZAPRINE 10 MG TAB PO ×2 (08:14→20:35)
[2018-10-27] MEDS: EMPAGLIFLOZIN 10 MG TABLET PO (08:14)
[2018-10-27] MEDS: GABAPENTIN 300 MG CAP PO (08:15)
[2018-10-27] MEDS: LISINOPRIL 5 MG TAB PO (08:15)
[2018-10-27] MEDS: LINAGLIPTIN 5 MG TABLET PO (08:15)
[2018-10-27] MEDS: NEOMYC/POLYMYX/BACIT 30 GM OINT TOP (08:15)
[2018-10-27] MEDS: DAKINS 0.0125%(1/40) 473 ML SOLUTION TP (08:16)
[2018-10-27] MEDS: DOCUSATE SODIUM 100 MG CAP PO ×2 (08:16→20:36)
[2018-10-27] MEDS: CEFEPIME 2GM/50 ML (PMX) 50 ML IVPB ×2 (09:23→20:30)
[2018-10-27] MEDS ORDERED: LIDOCAINE 2% (SDV) 5 ML INJ (12:29)
[2018-10-27] MEDS ORDERED: PROPOFOL 20 ML (12:29)
[2018-10-27] MEDS ORDERED: MIDAZOLAM 1 MG/ML 2 ML INJ ×2 (12:29→14:42)
[2018-10-27] MEDS ORDERED: FENTAnyl 50 MCG/ML VIAL ×3 (12:30→14:38)
[2018-10-27] MEDS: DIGOXIN 0.125 MG TAB PO (13:00)
[2018-10-27] MEDS ORDERED: BUPIVACAINE 0.5% (SDV) 30 ML INJ (13:42)
[2018-10-27] MEDS: BUPIVACAINE 0.5% (SDV) 30 ML INJ (13:45)
[2018-10-27] MEDS: BACITRACIN 50000 UNITS INJ (14:10)
[2018-10-27] MEDS: POLYMYXIN B 500000 UNIT INJ (14:10)
[2018-10-27] MEDS ORDERED: PROPOFOL 40 ML (14:16)
[2018-10-27] MEDS ORDERED: HYDROmorphONE 1 MG/5 ML IV SYRINGE IV ×5 (14:30→15:30)
[2018-10-27] MEDS ORDERED: ONDANSETRON 4 MG INJ IV ×3 (14:30→15:30)
[2018-10-27] MEDS ORDERED: OXYCODONE/ACETAMINOPHEN (5/325) TAB PO ×4 (14:30→15:30)
[2018-10-27] MEDS ORDERED: ROCURONIUM 50 MG INJ IV (15:22)
[2018-10-27] MEDS: HYDROmorphONE 1 MG/5 ML IV SYRINGE IV (15:23)
[2018-10-27] MEDS ORDERED: MEPERIDINE 25 MG INJ IV (15:30)
[2018-10-27] MEDS ORDERED: MIDAZOLAM 1 MG/ML 2 ML INJ IV (15:30)
[2018-10-27] MEDS: INSULIN GLARGINE [LANTus] (100 UNITS/ML) SYG SC (21:06)
[2018-10-28] MEDS: ACCU-CHEK XX (02:00)
[2018-10-28] MEDS: HYDROmorphONE 2 MG/ML SYG IV ×6 (02:54→21:38)
[2018-10-28] MEDS: VANCOMYCIN HCL 1.5 GM in SOD CHLORIDE 0.9% 250 ML IVPB ×2 (04:27→17:06)
[2018-10-28] MEDS: metroNIDAZOLE 500 MG/NS (PMX) 100 ML IVPB ×3 (05:57→21:38)
[2018-10-28] MEDS: [UNRECOGNIZED DRUG - OTHER] XX ×3 (06:30→22:30)
[2018-10-28] MEDS: INSULIN ASPART [NOVOLOG] 3 ML PEN SC ×4 (08:00→21:13)
[2018-10-28] MEDS: LINAGLIPTIN 5 MG TABLET PO (08:52)
[2018-10-28] MEDS: DOCUSATE SODIUM 100 MG CAP PO ×2 (08:52→21:04)
[2018-10-28] MEDS: APIXABAN 5 MG TABLET PO ×2 (08:52→21:04)
[2018-10-28] MEDS: CYCLOBENZAPRINE 10 MG TAB PO ×2 (08:52→21:04)
[2018-10-28] MEDS: EMPAGLIFLOZIN 10 MG TABLET PO (08:52)
[2018-10-28] MEDS: AMIODARONE 200 MG TAB PO (08:53)
[2018-10-28] MEDS: GABAPENTIN 300 MG CAP PO (08:53)
[2018-10-28] MEDS: LISINOPRIL 5 MG TAB PO (08:55)
[2018-10-28] MEDS: FUROSEMIDE 20 MG TAB PO (08:55)
[2018-10-28] MEDS: NEOMYC/POLYMYX/BACIT 30 GM OINT TOP (08:56)
[2018-10-28] MEDS: DAKINS 0.0125%(1/40) 473 ML SOLUTION TP (08:56)
[2018-10-28] MEDS: CYANOCOBALAMIN 1000 MCG INJ IM (08:57)
[2018-10-28] MEDS: CEFEPIME 2GM/50 ML (PMX) 50 ML IVPB ×2 (09:04→21:02)
[2018-10-28] MEDS: DIGOXIN 0.125 MG TAB PO (13:47)
[2018-10-28] MEDS: INSULIN GLARGINE [LANTus] (100 UNITS/ML) SYG SC (21:12)
[2018-10-29] MEDS: HYDROmorphONE 2 MG/ML SYG IV ×8 (00:38→23:01)
[2018-10-29] MEDS: ACCU-CHEK XX (02:00)
[2018-10-29] MEDS: VANCOMYCIN HCL 1.5 GM in SOD CHLORIDE 0.9% 250 ML IVPB ×2 (04:59→17:44)
[2018-10-29 05:37] LABS: ADD MAN DIFF? NO
[2018-10-29 05:45] LABS: BASOPHILS % 0.4 % (0.0-2.0); EOSINOPHILS # 0.4 10^3/ul (0.0-0.5); EOSINOPHILS % 3.4 % (0.0-7.0); HEMATOCRIT 35.2 % (42.0-52.0); LYMPHOCYTES # 2.1 10^3/ul (0.8-2.9); LYMPHOCYTES % 19.3 % (15.0-51.0); MEAN CORPUSCULAR HEMOGLOBIN 28.1 pg (29.0-33.0); MEAN CORPUSCULAR HGB CONC 31.3 g/dl (32.0-37.0); MEAN CORPUSCULAR VOLUME 89.8 fl (82.0-101.0); MEAN PLATELET VOLUME 10.8 fl (7.4-10.4); MONOCYTE # 1.4 10^3/ul (0.3-0.9); MONOCYTES % 12.7 % (0.0-11.0); NEUTROPHILS % 63.8 % (39.0-77.0); PLATELET COUNT 334 10^3/UL (140-415); RED BLOOD COUNT 3.92 10^6/ul (4.70-6.10); RED CELL DISTRIBUTION WIDTH 15.3 % (11.5-14.5)
[2018-10-29] MEDS: metroNIDAZOLE 500 MG/NS (PMX) 100 ML IVPB ×3 (05:59→21:43)
[2018-10-29 06:07] LABS: ANION GAP 7 (5-13); BLOOD UREA NITROGEN 17 mg/dl (7-20); CARBON DIOXIDE 29 mmol/L (21-31); CHLORIDE 101 mmol/L (97-110); CREATININE 0.62 mg/dl (0.61-1.24); Estimated GFR > 60 mL/min (>60); GLUCOSE 126 mg/dl (70-220); POTASSIUM 4.8 mmol/L (3.5-5.1); SODIUM 137 mmol/L (135-144)
[2018-10-29] MEDS: [UNRECOGNIZED DRUG - OTHER] XX ×3 (06:30→21:49)
[2018-10-29] MEDS: INSULIN ASPART [NOVOLOG] 3 ML PEN SC ×4 (08:00→20:31)
[2018-10-29] MEDS: EMPAGLIFLOZIN 10 MG TABLET PO (08:24)
[2018-10-29] MEDS: DOCUSATE SODIUM 100 MG CAP PO ×2 (08:25→20:20)
[2018-10-29] MEDS: LISINOPRIL 5 MG TAB PO (08:25)
[2018-10-29] MEDS: FUROSEMIDE 20 MG TAB PO (08:25)
[2018-10-29] MEDS: CYCLOBENZAPRINE 10 MG TAB PO ×2 (08:26→20:21)
[2018-10-29] MEDS: GABAPENTIN 300 MG CAP PO (08:27)
[2018-10-29] MEDS: LINAGLIPTIN 5 MG TABLET PO (08:27)
[2018-10-29] MEDS: APIXABAN 5 MG TABLET PO ×2 (08:27→20:21)
[2018-10-29] MEDS: AMIODARONE 200 MG TAB PO (08:27)
[2018-10-29] MEDS: CYANOCOBALAMIN 1000 MCG INJ IM (08:28)
[2018-10-29] MEDS: HYDROmorphONE 1 MG/ML SYG IV (10:50)
[2018-10-29] MEDS: CEFEPIME 2GM/50 ML (PMX) 50 ML IVPB ×2 (11:10→20:56)
[2018-10-29] MEDS: DAKINS 0.0125%(1/40) 473 ML SOLUTION TP (11:10)
[2018-10-29] MEDS: DIGOXIN 0.125 MG TAB PO (14:39)
[2018-10-29] MEDS: NEOMYC/POLYMYX/BACIT 30 GM OINT TOP (14:44)
[2018-10-29] MEDS: HYDROCODONE/APAP (5/325) TAB PO (15:41)
[2018-10-29 17:33] LABS: VANCOMYCIN,TROUGH 13.6 ug/ml (10.0-20.0)
[2018-10-29] MEDS: MAGNESIUM HYDROXIDE 30ML CUP PO (20:20)
[2018-10-29] MEDS: INSULIN GLARGINE [LANTus] (100 UNITS/ML) SYG SC (20:29)
[2018-10-30] MEDS: ACCU-CHEK XX ×2 (01:20→22:52)
[2018-10-30] MEDS: HYDROmorphONE 2 MG/ML SYG IV ×6 (02:03→21:32)
[2018-10-30] MEDS: VANCOMYCIN HCL 1.5 GM in SOD CHLORIDE 0.9% 250 ML IVPB ×2 (05:22→17:12)
[2018-10-30] MEDS: [UNRECOGNIZED DRUG - OTHER] XX ×3 (06:30→20:35)
[2018-10-30] MEDS: CEFAZOLIN 1 GM/50 ML (PMX) 50 ML IVPB (07:20)
[2018-10-30] MEDS: INSULIN ASPART [NOVOLOG] 3 ML PEN SC ×4 (08:00→20:23)
[2018-10-30] MEDS: DAKINS 0.0125%(1/40) 473 ML SOLUTION TP (09:00)
[2018-10-30] MEDS: metroNIDAZOLE 500 MG/NS (PMX) 100 ML IVPB ×3 (09:17→21:43)
[2018-10-30] MEDS: CYANOCOBALAMIN 1000 MCG INJ IM (09:17)
[2018-10-30] MEDS: DOCUSATE SODIUM 100 MG CAP PO ×2 (09:17→20:21)
[2018-10-30] MEDS: AMIODARONE 200 MG TAB PO (09:18)
[2018-10-30] MEDS: APIXABAN 5 MG TABLET PO ×2 (09:19→20:22)
[2018-10-30] MEDS: CYCLOBENZAPRINE 10 MG TAB PO ×2 (09:19→20:18)
[2018-10-30] MEDS: LINAGLIPTIN 5 MG TABLET PO (09:19)
[2018-10-30] MEDS: GABAPENTIN 300 MG CAP PO (09:19)
[2018-10-30] MEDS: FUROSEMIDE 20 MG TAB PO (09:19)
[2018-10-30] MEDS: EMPAGLIFLOZIN 10 MG TABLET PO (09:20)
[2018-10-30] MEDS: LISINOPRIL 5 MG TAB PO (09:20)
[2018-10-30] MEDS: NEOMYC/POLYMYX/BACIT 30 GM OINT TOP (09:23)
[2018-10-30] MEDS: HYDROCODONE/APAP (5/325) TAB PO ×2 (10:47→20:33)
[2018-10-30] MEDS: CEFEPIME 2GM/50 ML (PMX) 50 ML IVPB (10:47)
[2018-10-30] MEDS: DIGOXIN 0.125 MG TAB PO (12:35)
[2018-10-30] MEDS: CEFTAZIDIME 1GM/50 ML (PMX) 50 ML IVPB (20:17)
[2018-10-30] MEDS: INSULIN GLARGINE [LANTus] (100 UNITS/ML) SYG SC (20:25)
[2018-10-30] MEDS: AL HYDROX/MG HYDROX/SIMETH 30 ML CUP PO (22:47)
[2018-10-31] MEDS: HYDROmorphONE 2 MG/ML SYG IV ×7 (00:33→23:21)
[2018-10-31] MEDS: HYDROCODONE/APAP (5/325) TAB PO ×3 (00:58→16:41)
[2018-10-31] MEDS: VANCOMYCIN HCL 1.5 GM in SOD CHLORIDE 0.9% 250 ML IVPB ×2 (04:36→16:42)
[2018-10-31] MEDS: AL HYDROX/MG HYDROX/SIMETH 30 ML CUP PO ×2 (04:37→15:37)
[2018-10-31] MEDS: metroNIDAZOLE 500 MG/NS (PMX) 100 ML IVPB ×3 (05:34→22:34)
[2018-10-31] MEDS: [UNRECOGNIZED DRUG - OTHER] XX ×2 (05:41→14:30)
[2018-10-31] MEDS: INSULIN ASPART [NOVOLOG] 3 ML PEN SC ×4 (08:00→20:31)
[2018-10-31] MEDS: LINAGLIPTIN 5 MG TABLET PO (08:18)
[2018-10-31] MEDS: DOCUSATE SODIUM 100 MG CAP PO ×2 (08:18→20:30)
[2018-10-31] MEDS: GABAPENTIN 300 MG CAP PO (08:18)
[2018-10-31] MEDS: EMPAGLIFLOZIN 10 MG TABLET PO (08:19)
[2018-10-31] MEDS: APIXABAN 5 MG TABLET PO ×2 (08:21→20:31)
[2018-10-31] MEDS: AMIODARONE 200 MG TAB PO (08:21)
[2018-10-31] MEDS: LISINOPRIL 5 MG TAB PO (08:22)
[2018-10-31] MEDS: CYCLOBENZAPRINE 10 MG TAB PO ×2 (08:23→20:30)
[2018-10-31] MEDS: FUROSEMIDE 20 MG TAB PO (08:23)
[2018-10-31] MEDS: CEFTAZIDIME 1GM/50 ML (PMX) 50 ML IVPB ×2 (08:24→20:26)
[2018-10-31] MEDS: CYANOCOBALAMIN 1000 MCG INJ IM (08:24)
[2018-10-31] MEDS: DAKINS 0.0125%(1/40) 473 ML SOLUTION TP (08:25)
[2018-10-31] MEDS: NEOMYC/POLYMYX/BACIT 30 GM OINT TOP (08:25)
[2018-10-31] MEDS: ONDANSETRON 4 MG INJ IV (08:27)
[2018-10-31] MEDS: DIGOXIN 0.125 MG TAB PO (12:08)
[2018-10-31] MEDS: PANTOPRAZOLE (EC) 40 MG TAB PO (15:39)
[2018-10-31] MEDS: MAGNESIUM HYDROXIDE 30ML CUP PO (20:29)
[2018-10-31] MEDS: INSULIN GLARGINE [LANTus] (100 UNITS/ML) SYG SC (20:34)
[2018-11-01] MEDS: ACCU-CHEK XX (02:00)
[2018-11-01] MEDS: HYDROmorphONE 2 MG/ML SYG IV ×7 (02:40→22:25)
[2018-11-01] MEDS: VANCOMYCIN HCL 1.5 GM in SOD CHLORIDE 0.9% 250 ML IVPB ×2 (04:44→17:28)
[2018-11-01] MEDS: PANTOPRAZOLE (EC) 40 MG TAB PO (05:49)
[2018-11-01] MEDS ORDERED: PANTOPRAZOLE (EC) 40 MG TAB PO ×2 (06:00)
[2018-11-01 07:10] LABS: BLOOD UREA NITROGEN 15 mg/dl (7-20)
[2018-11-01 07:10] LABS: CREATININE 0.64 mg/dl (0.61-1.24)
[2018-11-01] MEDS: INSULIN ASPART [NOVOLOG] 3 ML PEN SC ×4 (08:00→21:00)
[2018-11-01] MEDS: FUROSEMIDE 20 MG TAB PO (08:20)
[2018-11-01] MEDS: DOCUSATE SODIUM 100 MG CAP PO ×2 (08:20→21:00)
[2018-11-01] MEDS: APIXABAN 5 MG TABLET PO ×2 (08:20→21:01)
[2018-11-01] MEDS: LISINOPRIL 5 MG TAB PO (08:21)
[2018-11-01] MEDS: EMPAGLIFLOZIN 10 MG TABLET PO (08:21)
[2018-11-01] MEDS: LINAGLIPTIN 5 MG TABLET PO (08:22)
[2018-11-01] MEDS: GABAPENTIN 300 MG CAP PO (08:22)
[2018-11-01] MEDS: AMIODARONE 200 MG TAB PO (08:23)
[2018-11-01] MEDS: CYCLOBENZAPRINE 10 MG TAB PO ×2 (08:23→21:01)
[2018-11-01] MEDS: CYANOCOBALAMIN 1000 MCG INJ IM (08:23)
[2018-11-01] MEDS: metroNIDAZOLE 500 MG/NS (PMX) 100 ML IVPB ×2 (08:26→14:13)
[2018-11-01] MEDS: DAKINS 0.0125%(1/40) 473 ML SOLUTION TP (08:27)
[2018-11-01] MEDS: NEOMYC/POLYMYX/BACIT 30 GM OINT TOP (08:27)
[2018-11-01] MEDS: CEFTAZIDIME 1GM/50 ML (PMX) 50 ML IVPB (11:29)
[2018-11-01] MEDS: DIGOXIN 0.125 MG TAB PO (12:53)
[2018-11-01] MEDS: INSULIN GLARGINE [LANTus] (100 UNITS/ML) SYG SC (21:04)
[2018-11-01] MEDS: CEFTAZIDIME 2GM/50 ML (PMX) 50 ML IVPB (21:06)
[2018-11-01] MEDS: metroNIDAZOLE 500 MG TAB PO (21:06)
[2018-11-02] MEDS: HYDROmorphONE 2 MG/ML SYG IV ×6 (01:43→19:51)
[2018-11-02] MEDS: ACCU-CHEK XX (02:00)
[2018-11-02] MEDS: HYDROCODONE/APAP (5/325) TAB PO ×3 (03:22→21:10)
[2018-11-02] MEDS: PANTOPRAZOLE (EC) 40 MG TAB PO (05:01)
[2018-11-02] MEDS: VANCOMYCIN HCL 1.5 GM in SOD CHLORIDE 0.9% 250 ML IVPB ×2 (05:01→17:15)
[2018-11-02] MEDS: metroNIDAZOLE 500 MG TAB PO ×3 (05:01→21:10)
[2018-11-02] MEDS: CEFTAZIDIME 2GM/50 ML (PMX) 50 ML IVPB ×3 (05:03→22:28)
[2018-11-02 06:25] LABS: ADD MAN DIFF? NO
[2018-11-02 06:30] LABS: WHITE BLOOD COUNT 9.3 10^3/ul (4.8-10.8)
[2018-11-02 06:30] LABS: BASOPHILS % 0.4 % (0.0-2.0); EOSINOPHILS # 0.5 10^3/ul (0.0-0.5); EOSINOPHILS % 5.2 % (0.0-7.0); HEMATOCRIT 35.1 % (42.0-52.0); LYMPHOCYTES # 2.3 10^3/ul (0.8-2.9); LYMPHOCYTES % 24.4 % (15.0-51.0); MEAN CORPUSCULAR HGB CONC 31.3 g/dl (32.0-37.0); MEAN CORPUSCULAR VOLUME 89.3 fl (82.0-101.0); MEAN PLATELET VOLUME 10.4 fl (7.4-10.4); NEUTROPHIL # 5.5 10^3/ul (1.6-7.5); NEUTROPHILS % 58.7 % (39.0-77.0); PLATELET COUNT 365 10^3/UL (140-415); RED BLOOD COUNT 3.93 10^6/ul (4.70-6.10); RED CELL DISTRIBUTION WIDTH 15.1 % (11.5-14.5)
[2018-11-02 07:22] LABS: ANION GAP 9 (5-13); BLOOD UREA NITROGEN 16 mg/dl (7-20); CALCIUM 8.8 mg/dl (8.4-10.2); CARBON DIOXIDE 29 mmol/L (21-31); CHLORIDE 98 mmol/L (97-110); CREATININE 0.59 mg/dl (0.61-1.24); Estimated GFR > 60 mL/min (>60); GLUCOSE 100 mg/dl (70-220); POTASSIUM 4.2 mmol/L (3.5-5.1); SODIUM 136 mmol/L (135-144)
[2018-11-02] MEDS: INSULIN ASPART [NOVOLOG] 3 ML PEN SC ×4 (08:27→21:00)
[2018-11-02] MEDS: NEOMYC/POLYMYX/BACIT 30 GM OINT TOP (09:00)
[2018-11-02] MEDS: DOCUSATE SODIUM 100 MG CAP PO ×2 (09:30→21:02)
[2018-11-02] MEDS: AMIODARONE 200 MG TAB PO (09:30)
[2018-11-02] MEDS: CYANOCOBALAMIN 1000 MCG INJ IM (09:30)
[2018-11-02] MEDS: EMPAGLIFLOZIN 10 MG TABLET PO (09:31)
[2018-11-02] MEDS: CYCLOBENZAPRINE 10 MG TAB PO ×2 (09:31→21:07)
[2018-11-02] MEDS: APIXABAN 5 MG TABLET PO ×2 (09:31→21:02)
[2018-11-02] MEDS: GABAPENTIN 300 MG CAP PO (09:32)
[2018-11-02] MEDS: LINAGLIPTIN 5 MG TABLET PO (09:32)
[2018-11-02] MEDS: LISINOPRIL 5 MG TAB PO (09:32)
[2018-11-02] MEDS: FUROSEMIDE 20 MG TAB PO (09:32)
[2018-11-02] MEDS: DIGOXIN 0.125 MG TAB PO (14:13)
[2018-11-02] MEDS: DAKINS 0.0125%(1/40) 473 ML SOLUTION TP (14:14)
[2018-11-02] MEDS: INSULIN GLARGINE [LANTus] (100 UNITS/ML) SYG SC (21:06)
[2018-11-02] MEDS: ASCORBIC ACID 500 MG TAB PO (21:07)
[2018-11-03] MEDS: ACCU-CHEK XX ×2 (02:00→20:53)
[2018-11-03] MEDS: metroNIDAZOLE 500 MG TAB PO ×3 (05:06→20:33)
[2018-11-03] MEDS: PANTOPRAZOLE (EC) 40 MG TAB PO (05:06)
[2018-11-03] MEDS: CEFTAZIDIME 2GM/50 ML (PMX) 50 ML IVPB ×3 (05:06→20:35)
[2018-11-03] MEDS: VANCOMYCIN HCL 1.5 GM in SOD CHLORIDE 0.9% 250 ML IVPB ×2 (05:44→17:32)
[2018-11-03] MEDS: HYDROmorphONE 2 MG/ML SYG IV ×5 (06:29→22:49)
[2018-11-03] MEDS: INSULIN ASPART [NOVOLOG] 3 ML PEN SC ×4 (08:00→20:39)
[2018-11-03] MEDS: CYANOCOBALAMIN 1000 MCG INJ IM (08:13)
[2018-11-03] MEDS: DOCUSATE SODIUM 100 MG CAP PO ×2 (08:14→20:33)
[2018-11-03] MEDS: MULTIVITAMINS THERAPEUTIC TAB PO (08:15)
[2018-11-03] MEDS: ASCORBIC ACID 500 MG TAB PO ×2 (08:15→20:33)
[2018-11-03] MEDS: EMPAGLIFLOZIN 10 MG TABLET PO (08:15)
[2018-11-03] MEDS: AMIODARONE 200 MG TAB PO (08:16)
[2018-11-03] MEDS: LINAGLIPTIN 5 MG TABLET PO (08:17)
[2018-11-03] MEDS: FUROSEMIDE 20 MG TAB PO (08:17)
[2018-11-03] MEDS: APIXABAN 5 MG TABLET PO ×2 (08:17→20:34)
[2018-11-03] MEDS: GABAPENTIN 300 MG CAP PO (08:22)
[2018-11-03] MEDS: ZINC SULFATE 220 MG CAP PO (08:22)
[2018-11-03] MEDS: HYDROCODONE/APAP (5/325) TAB PO ×4 (08:23→20:50)
[2018-11-03] MEDS: CYCLOBENZAPRINE 10 MG TAB PO ×2 (08:23→20:34)
[2018-11-03] MEDS: LISINOPRIL 5 MG TAB PO (08:24)
[2018-11-03] MEDS: NEOMYC/POLYMYX/BACIT 30 GM OINT TOP (08:26)
[2018-11-03] MEDS: DAKINS 0.0125%(1/40) 473 ML SOLUTION TP (08:27)
[2018-11-03] MEDS: DIGOXIN 0.125 MG TAB PO (13:06)
[2018-11-03 17:06] LABS: VANCOMYCIN,TROUGH 14.3 ug/ml (10.0-20.0)
[2018-11-03] MEDS: INSULIN GLARGINE [LANTus] (100 UNITS/ML) SYG SC (20:36)
[2018-11-04] MEDS: HYDROCODONE/APAP (5/325) TAB PO ×4 (01:55→18:13)
[2018-11-04] MEDS: HYDROmorphONE 2 MG/ML SYG IV ×5 (02:56→19:50)
[2018-11-04] MEDS: metroNIDAZOLE 500 MG TAB PO ×2 (04:54→13:51)
[2018-11-04] MEDS: VANCOMYCIN HCL 1.5 GM in SOD CHLORIDE 0.9% 250 ML IVPB ×2 (04:54→17:27)
[2018-11-04] MEDS: CEFTAZIDIME 2GM/50 ML (PMX) 50 ML IVPB ×2 (04:54→13:51)
[2018-11-04] MEDS: PANTOPRAZOLE (EC) 40 MG TAB PO (04:54)
[2018-11-04 07:19] LABS: CREATININE 0.64 mg/dl (0.61-1.24)
[2018-11-04 07:19] LABS: BLOOD UREA NITROGEN 15 mg/dl (7-20)
[2018-11-04] MEDS: INSULIN ASPART [NOVOLOG] 3 ML PEN SC ×3 (08:00→18:05)
[2018-11-04] MEDS: LISINOPRIL 5 MG TAB PO (09:00)
[2018-11-04] MEDS: DAKINS 0.0125%(1/40) 473 ML SOLUTION TP (09:00)
[2018-11-04] MEDS: AMIODARONE 200 MG TAB PO (09:28)
[2018-11-04] MEDS: CYANOCOBALAMIN 1000 MCG INJ IM (09:28)
[2018-11-04] MEDS: DOCUSATE SODIUM 100 MG CAP PO (09:28)
[2018-11-04] MEDS: APIXABAN 5 MG TABLET PO (09:28)
[2018-11-04] MEDS: EMPAGLIFLOZIN 10 MG TABLET PO (09:29)
[2018-11-04] MEDS: CYCLOBENZAPRINE 10 MG TAB PO (09:29)
[2018-11-04] MEDS: FUROSEMIDE 20 MG TAB PO (09:30)
[2018-11-04] MEDS: LINAGLIPTIN 5 MG TABLET PO (09:30)
[2018-11-04] MEDS: GABAPENTIN 300 MG CAP PO (09:30)
[2018-11-04] MEDS: ASCORBIC ACID 500 MG TAB PO (09:30)
[2018-11-04] MEDS: MULTIVITAMINS THERAPEUTIC TAB PO (09:30)
[2018-11-04] MEDS: ZINC SULFATE 220 MG CAP PO (09:30)
[2018-11-04] MEDS: NEOMYC/POLYMYX/BACIT 30 GM OINT TOP (09:31)
[2018-11-04] MEDS: DIGOXIN 0.125 MG TAB PO (13:54)
== END 2018-11-04 20:35 | disposition home health service (06) | DRG 629 ==
LOC: ICU 09-23 00:26 → TEL 09-25 17:28 → ICU 10-22 12:25 → 6WM 10-24 00:36 → E/R 14:04 → PP2 10-26 19:07 → 2NE 18:17
PROC: 0QBL0ZZ Excision of Right Tarsal, Open Approach (ICD-10-PCS; principal; 2018-09-21 09:30)
PROC: 041M09P Bypass Right Popliteal Artery to Foot Artery with Autologous Venous Tissue, Open Approach (ICD-10-PCS; 2018-09-21 09:48)
PROC: 06BP4ZZ Excision of Right Saphenous Vein, Percutaneous Endoscopic Approach (ICD-10-PCS; 2018-09-21 09:48)
PROC: 0QBL0ZZ Excision of Right Tarsal, Open Approach (ICD-10-PCS; 2018-09-21 09:48)
PROC: 0DJ08ZZ Inspection of Upper Intestinal Tract, Via Natural or Artificial Opening Endoscopic (ICD-10-PCS; 2018-09-21 09:48)
PROC: B548ZZA Ultrasonography of Superior Vena Cava, Guidance (ICD-10-PCS; 2018-09-21 09:48)
PROC: 02HV33Z Insertion of Infusion Device into Superior Vena Cava, Percutaneous Approach (ICD-10-PCS; 2018-09-21 09:48)
PROC: 30233N1 Transfusion of Nonautologous Red Blood Cells into Peripheral Vein, Percutaneous Approach (ICD-10-PCS; 2018-09-21 09:48)
DX: E11.621 Type 2 diabetes mellitus with foot ulcer (principal); L97.419 Non-pressure chronic ulcer of right heel and midfoot with unspecified severity; I42.9 Cardiomyopathy, unspecified; E11.52 Type 2 diabetes mellitus with diabetic peripheral angiopathy with gangrene; E11.40 Type 2 diabetes mellitus with diabetic neuropathy, unspecified; E11.8 Type 2 diabetes mellitus with unspecified complications; I11.0 Hypertensive heart disease with heart failure; I50.9 Heart failure, unspecified; I48.91 Unspecified atrial fibrillation; I25.5 Ischemic cardiomyopathy; Z95.810 Presence of automatic (implantable) cardiac defibrillator; I73.9 Peripheral vascular disease, unspecified; I25.10 Atherosclerotic heart disease of native coronary artery without angina pectoris; M19.90 Unspecified osteoarthritis, unspecified site; E78.5 Hyperlipidemia, unspecified; D64.9 Anemia, unspecified; Z95.1 Presence of aortocoronary bypass graft; E66.9 Obesity, unspecified; Z68.32 Body mass index [BMI] 32.0-32.9, adult; S80.01XA Contusion of right knee, initial encounter; S80.211A Abrasion, right knee, initial encounter; Z72.0 Tobacco use; Z79.4 Long term (current) use of insulin; R19.09 Other intra-abdominal and pelvic swelling, mass and lump; M43.17 Spondylolisthesis, lumbosacral region
CPT/HCPCS: 36415; 36430; 36569; 71045; 72110; 73562; 73700; 74176; 76937; 78452; 80048; 80053; 80061; 80202; 82270; 82565; 82607; 82728; 82746; 82962; 83036; 83540; 83605; 83735; 84153; 84154; 84484; 84520; 85025; 85045; 85049; 85610; 85651; 85670; 85730; 86140; 86850; 86900; 86901; 86920; 87040-91; 87070; 87075; 87081; 93005; 93017; 93306; 93970; 96365; 96375; 97110; 97116; 97162; 97530; 99285-25